=== PATIENT | female | born 1940 | race Caucasian/White ===

== ENCOUNTER → 2018-12-18 10:58 | Outpatient (CLI) | payer MEDICARE, OTHER, SELFPAY | PROVIDERS: Visit Provider Physician Assistant | DX: N39.0 Urinary tract infection, site not specified (principal) | CPT/HCPCS: 87077; 87086; 87186 ==

== ENCOUNTER 2018-12-29 19:59 | Emergency (ER) | payer MEDICARE, OTHER, SELFPAY ==
[2018-12-29 20:00] VITALS: BP 153/96; PULSE 74; PULSE 78; RESP 16; RESP 24; TEMP 36.5; O2SAT 96; O2SAT 98
--- NOTE | 2018-12-29 20:13 | DI.RAD.S_ITS ---
PROCEDURE: XR CHEST 1V INDICATIONS: Wheezing. TECHNIQUE: One view of the chest was acquired. COMPARISON: [facility], CHEST 2 VIEW, 02/20/2008, 10:33. [facility], CHEST 2 VIEW, 01/30/2017, 8:49. FINDINGS: Surgical changes and devices: None. Lungs and pleura: Linear opacities are redemonstrated in the lung bases likely representing scarring or atelectasis. No definite acute consolidation. No pleural effusions or pneumothorax. Mediastinum: Mediastinal contours appear unchanged. Heart size is normal. Bones and chest wall: No suspicious bony lesions. Overlying soft tissues appear unremarkable. IMPRESSION: 1. Probable atelectasis or scarring in the lung bases. No definite acute cardiopulmonary disease. Dictated by: Harley Banegas M.D. on 12/29/2018 at 21:11 Approved by: Harley Banegas M.D. on 12/29/2018 at 21:13
--- NOTE | 2018-12-29 20:19 | ED.SOB ---
HPI - SOB/Dyspnea <HARDIK Cowan - Last Filed: 12/29/18 22:20> General Chief Complaint: Shortness of Breath/Dyspnea Stated Complaint: hx of asthma/episode last x1 week Time Seen by Provider: 12/29/18 20:07 History of Present Illness 78-year-old female with a history of asthma, presents emergency department today complaining of wheezing and worsening shortness of breath occurring 2 hours ago after she fell asleep. She states that she has had a cough for a while, but tonight it got worse. Denies fevers, chest pain, rhinorrhea, ear pain, sore throat, difficulty swallowing, nausea, orthopnea, vomiting, diarrhea, hives, throat swelling, rash or dysuria. She states that she has an inhaler at home but is running out of it. She also states her and her are from [place] for the next month and a half. Patient is here with her who gives part of the history. During exam patient is able to talk but wheezing is heard. Patient was recently put on antibiotics for her urinary tract infection, she has 1 pill left. MD Complaint: shortness of breath Severity: moderate Relieving factors: bronchodilators Related Data Home Medications Medication Instructions Recorded Confirmed MULTIVITAMIN #0 01/23/17 12/18/18 albuterol sulfate [Proventil HFA] 1 puff INH #0 01/23/17 12/18/18 budesonide-formoterol [Symbicort] 1 inh INH BID #0 01/23/17 12/18/18 Previous Rx's Medication Instructions Recorded albuterol sulfate HFA 90 2 puff INHALATION Q4-6H PRN #8 gram 12/18/18 mcg/actuation aerosol inhaler nitrofurantoin 100 mg PO BID #14 cap 12/18/18 monohydrate/macrocrystals 100 mg capsule albuterol sulfate 2 puff INHALATION Q6H PRN #8 gram 12/29/18 albuterol sulfate 2 puff INHALATION Q6H PRN #8 gram 12/29/18 prednisone 50 mg PO DAILY #5 tab 12/29/18 prednisone 50 mg PO DAILY #5 tab 12/29/18 Allergies Allergy/AdvReac Type Severity Reaction Status Date / Time No Known Drug Allergies Allergy Unknown Verified 12/29/18 20:10 Review of Systems <HARDIK Cowan - Last Filed: 12/29/18 22:20> Review of Systems REVIEW OF SYSTEMS: GENERAL: Denies fever or chills. HENT: No head trauma, hearing loss or sore throat. EYES: No loss of vision, double vision, eye pain, or irritation. CARDIOVASCULAR: No chest pain or syncope. RESPIRATORY: Patient complains of cough and shortness of breath, see HPI. GASTROINTESTINAL: No nausea, vomiting, diarrhea, or constipation. GENITOURINARY: No flank pain or dysuria. MUSCULOSKELETAL: No pain, weakness, or deformities. INTEGUMENTARY: No rash, lesions, or pruritus. NEURO: No numbness, tingling, memory loss, or confusion. PSYCH: No behavior or mood changes. PFSH <HARDIK Cowan - Last Filed: 12/29/18 22:20> Medical History Asthma (Acute) Former smoker (Acute) Former smoker, stopped smoking in distant past (Acute) Social History Smoking Status: Former smoker Social History Smoking Status: Former smoker Exam <HARDIK Cowan - Last Filed: 12/29/18 22:20> Initial Vital Signs Initial Vital Signs: Vital Signs Temperature 97.7 F 12/29/18 20:00 Pulse Rate 78 12/29/18 20:00 Respiratory Rate 24 12/29/18 20:00 Blood Pressure 153/96 H 12/29/18 20:00 Pulse Oximetry 96 12/29/18 20:00 PHYSICAL EXAMINATION: GENERAL: Well groomed, alert, and cooperative. Answers questions promptly and appropriately, however difficult to talk in full sentences initially due to wheezing. Vital signs noted. HENT: Normocephalic, atraumatic. Ear canals patent. Oral mucosa is pink and moist without erythema, uvula midline, tonsils were absent. Patient able to swallow without difficulty. EYES: Conjunctiva pink, sclera white, no periorbital swelling. CARDIOVASCULAR: S1 and S2 sounds normal. Regular rate. RESPIRATORY: Normal respiratory rate, trachea midline, airway patent. Patient exhibits wheezes on bases of lungs, during initial exam she exhibited expiratory stridor as she was slumped down in bed. No in spurts story stridor was exhibited P Wheezes and stridor resolved after administration of 1 respiratory treatment. No nasal flaring, or accessory muscle use. Patient was able to converse a and maintained oral secretions. GASTROINTESTINAL: Bowel sounds normoactive. Abdomen is soft and non-tender. No organomegaly. MUSCULOSKELETAL: Normal gait and coordination. Equal tone and mass bilaterally. EXTREMITIES: CMS intact. Moves all extremities. SKIN: Warm, dry, soft, appropriate color for ethnicity. No lesions, rashes, or wounds. NEURO: Alert and Oriented X 3. Good coordination. No ataxia, or sensory deficits, or cognitive issues. PSYCH: Appropriate affect and mood. <Angie Garcia DO - Last Filed: 12/30/18 00:47> Initial Vital Signs Initial Vital Signs: Vital Signs Temperature 97.7 F 12/29/18 20:00 Pulse Rate 78 12/29/18 20:00 Respiratory Rate 24 12/29/18 20:00 Blood Pressure 153/96 H 12/29/18 20:00 Pulse Oximetry 96 12/29/18 20:00 GENERAL: Well-appearing, well-nourished and in no acute distress. HEENT: Head atraumatic,EOMI, pupils reactive, CARDIOVASCULAR: Regular rate and rhythm without murmurs, rubs or gallops. RESPIRATORY: Seeking in full sentences decreased breath sounds bilaterally with some slight expiratory wheezing no rales or rhonchi no tachypnea and no stridor ABDOMEN: Soft, nontender. Normoactive bowel sounds all 4 quadrants. No guarding or rebound. EXTREMITIES: Normal range of motion, no clubbing or edema. Neurovascularly intact NEUROLOGICAL: Alert and oriented x4.Normal gait and speech. Cranial nerves II through XII grossly intact. SKIN: Warm, dry, no laceration, no petechiae, no rashes or lesions. Course <NatachaHARDIK Menchaca - Last Filed: 12/29/18 22:20> Orders Ordered: ED Orders 12/29/18 20:10 Consult to Respiratory Therapy Evaluate & Treat B Type Natriuretic Peptide Stat Complete Blood Count AUTO DIFF Stat Comprehensive Metabolic Panel Stat Troponin & CK Cardiac Panel Stat 12/29/18 20:13 XR chest 1V Stat 12/29/18 20:25 EKG-12 Lead Stat Discontinued Medications Methylprednisolone (Solu-Medrol 125 Mg Vial) 125 mg IV NOW ONE Stop: 12/29/18 20:13 Last Admin: 12/29/18 20:22 Dose: 125 mg Reevaluation(s) Reevaluation #1: Patient stated she was feeling much better after administration of breathing treatments and prednisone. She states she would like to go home with like follow-up information about a primary care provider Consultations Consultation #1: After brought night and also viewed the patient. Vital Signs - 8 hr 12/29/18 20:00 12/29/18 20:30 12/29/18 21:30 Temperature 97.7 F Pulse Rate 74 74 79 Respiratory Rate 16 17 16 Blood Pressure 153/96 H Blood Pressure [Right Arm] 112/44 L 114/79 Pulse Oximetry 98 98 96 <Angie Garcia DO - Last Filed: 12/30/18 00:47> Orders Ordered: ED Orders 12/29/18 20:10 Consult to Respiratory Therapy Evaluate & Treat B Type Natriuretic Peptide Stat Complete Blood Count AUTO DIFF Stat Comprehensive Metabolic Panel Stat Troponin & CK Cardiac Panel Stat 12/29/18 20:13 XR chest 1V Stat 12/29/18 20:25 EKG-12 Lead Stat Discontinued Medications Methylprednisolone (Solu-Medrol 125 Mg Vial) 125 mg IV NOW ONE Stop: 12/29/18 20:13 Last Admin: 12/29/18 20:22 Dose: 125 mg Vital Signs - 8 hr 12/29/18 20:00 12/29/18 20:30 12/29/18 21:30 Temperature 97.7 F Pulse Rate 74 74 79 Respiratory Rate 16 17 16 Blood Pressure 153/96 H Blood Pressure [Right Arm] 112/44 L 114/79 Pulse Oximetry 98 98 96 MDM - SOB/Dyspnea <HARDIK Cowan - Last Filed: 12/29/18 22:20> Lab Data Attestation: I reviewed the patient's lab results. Result diagrams: 12/29/18 20:10 12/29/18 20:10 Lab Results 12/29/18 12/29/18 12/29/18 Range/Units 20:10 20:10 20:10 WBC 9.8 (4.5-11.0) X10^3/uL RBC 5.27 H (4.0-5.2) X10^6/uL Hgb 15.9 (12.0-16.0) g/dL Hct 47.2 H (36-46) % MCV 89.5 (80-100) fL MCH 30.1 (26-34) PG MCHC 33.6 (30-36) % RDW 13.5 (11.6-14.8) % Plt Count 340 (150-400) X10^3/uL Neut % (Auto) 46.4 L (50-75) % Lymph % (Auto) 35.2 (25-40) % [place] % (Auto) 9.7 (3-14) % Eos % (Auto) 7.9 H (2-4) % Baso % (Auto) 0.8 (0-2) % Neut # (Auto) 4600 (4266-7727) /uL Lymph # (Auto) 3500 (8327-6305) /uL [place] # (Auto) 1000 H (0-900) /uL Eos # (Auto) 800 H (0-450) /uL Baso # (Auto) 100 (0-100) /uL Sodium 139 (137-145) mmol/L Potassium 4.4 (3.4-5.1) mmol/L Chloride 102 (98-107) mmol/L Carbon Dioxide 26 (22-32) mmol/L BUN 14 (7-17) mg/dL Creatinine 0.80 (0.52-1.04) mg/dL Estimated GFR > 60.0 (>60) mL/min BUN/Creatinine Ratio 17.5 (6-22) Glucose 89 (80-110) mg/dL Calcium 9.9 (8.4-10.2) mg/dL Total Bilirubin 0.6 (0.2-1.3) mg/dL AST 35 (14-36) IU/L ALT 26 (9-52) IU/L Alkaline Phosphatase 106 (38-126) U/L Total Creatine Kinase 244 H (30-135) U/L CK-MB (CK-2) 3.22 H (<2.37) ng/mL CK-MB (CK-2) Rel Index 1.3 L (1.5-5.0) % Troponin I < 0.012 (0.01-0.034) ng/mL B-Natriuretic Peptide (<100) Total Protein 8.1 (6.3-8.2) g/dL Albumin 4.5 (3.5-5.0) g/dL Globulin 3.6 (1.7-4.1) g/dL Albumin/Globulin Ratio 1.3 (1.0-2.8) // Range/Units 20:10 WBC (4.5-11.0) X10^3/uL RBC (4.0-5.2) X10^6/uL Hgb (12.0-16.0) g/dL Hct (36-46) % MCV (80-100) fL MCH (26-34) PG MCHC (30-36) % RDW (11.6-14.8) % Plt Count (150-400) X10^3/uL Neut % (Auto) (50-75) % Lymph % (Auto) (25-40) % [place] % (Auto) (3-14) % Eos % (Auto) (2-4) % Baso % (Auto) (0-2) % Neut # (Auto) (9471-8995) /uL Lymph # (Auto) (4622-2072) /uL [place]isher # (Auto) (0-900) /uL Eos # (Auto) (0-450) /uL Baso # (Auto) (0-100) /uL Sodium (137-145) mmol/L Potassium (3.4-5.1) mmol/L Chloride (98-107) mmol/L Carbon Dioxide (22-32) mmol/L BUN (7-17) mg/dL Creatinine (0.52-1.04) mg/dL Estimated GFR (>60) mL/min BUN/Creatinine Ratio (6-22) Glucose (80-110) mg/dL Calcium (8.4-10.2) mg/dL Total Bilirubin (0.2-1.3) mg/dL AST (14-36) IU/L ALT (9-52) IU/L Alkaline Phosphatase (38-126) U/L Total Creatine Kinase (30-135) U/L CK-MB (CK-2) (<2.37) ng/mL CK-MB (CK-2) Rel Index (1.5-5.0) % Troponin I (0.01-0.034) ng/mL B-Natriuretic Peptide < 100 (<100) Total Protein (6.3-8.2) g/dL Albumin (3.5-5.0) g/dL Globulin (1.7-4.1) g/dL Albumin/Globulin Ratio (1.0-2.8) Imaging Data Chest XR: Radiologist's impression: [address] [address] XRay Report Signed Patient: Deborah Wyatt MMR#: [id number] : 2Acct:[id number] Age/Sex: 78 / FDate of Service: 12/29/18 Loc: ED Accession Number: [id number] Procedure: XR chest 1V Ordering Provider: Natacha Negron PROCEDURE: XR CHEST 1V INDICATIONS: Wheezing. TECHNIQUE: One view of the chest was acquired. COMPARISON: [facility], , CHEST 2 VIEW, 02/20/2008, 10:33. [facility], , CHEST 2 VIEW, 01/30/2017, 8:49. FINDINGS: Surgical changes and devices: None. Lungs and pleura: Linear opacities are redemonstrated in the lung bases likely representing scarring or atelectasis. No definite acute consolidation. No pleural effusions or pneumothorax. Mediastinum: Mediastinal contours appear unchanged. Heart size is normal. Bones and chest wall: No suspicious bony lesions. Overlying soft tissues appear unremarkable. IMPRESSION: 1. Probable atelectasis or scarring in the lung bases. No definite acute cardiopulmonary disease. Dictated by: Harley Banegas M.D. on 12/29/2018 at 21:11 Approved by: Harley Banegas M.D. on 12/29/2018 at 21:13 ECG Data Interpretation: EKG was feet interpreted by Dr. Garcia. MDM Narrative Medical decision making narrative: I suspect patient's symptoms are caused by an asthma exacerbation (resolution of symptoms with albuterol and prednisone, hyperinflation noted on chest x-ray, no infectious process indicated via vitals or exam or labs), unsure of etiology of exacerbation, alert patient's visit she has had a allergies. Less likely infectious process like pneumonia (negative chest x-ray normal labs), less likely heart failure (lack of pedal edema and negative BNP), less likely anaphylaxis (no rash, airway swelling, itching, or other symptoms), less likely cardiac etiology (negative cardiac enzymes, no cardiac findings on chest x-ray, EKG within normal limits). <Angie Garcia, DO - Last Filed: 12/30/18 00:47> Lab Data Attestation: I reviewed the patient's lab results. Lab Results 12/29/18 12/29/18 12/29/18 Range/Units 20:10 20:10 20:10 WBC 9.8 (4.5-11.0) X10^3/uL RBC 5.27 H (4.0-5.2) X10^6/uL Hgb 15.9 (12.0-16.0) g/dL Hct 47.2 H (36-46) % MCV 89.5 (80-100) fL MCH 30.1 (26-34) PG MCHC 33.6 (30-36) % RDW 13.5 (11.6-14.8) % Plt Count 340 (150-400) X10^3/uL Neut % (Auto) 46.4 L (50-75) % Lymph % (Auto) 35.2 (25-40) % [place]isher % (Auto) 9.7 (3-14) % Eos % (Auto) 7.9 H (2-4) % Baso % (Auto) 0.8 (0-2) % Neut # (Auto) 4600 (3694-4135) /uL Lymph # (Auto) 3500 (6909-2920) /uL [place] # (Auto) 1000 H (0-900) /uL Eos # (Auto) 800 H (0-450) /uL Baso # (Auto) 100 (0-100) /uL Sodium 139 (137-145) mmol/L Potassium 4.4 (3.4-5.1) mmol/L Chloride 102 (98-107) mmol/L Carbon Dioxide 26 (22-32) mmol/L BUN 14 (7-17) mg/dL Creatinine 0.80 (0.52-1.04) mg/dL Estimated GFR > 60.0 (>60) mL/min BUN/Creatinine Ratio 17.5 (6-22) Glucose 89 (80-110) mg/dL Calcium 9.9 (8.4-10.2) mg/dL Total Bilirubin 0.6 (0.2-1.3) mg/dL AST 35 (14-36) IU/L ALT 26 (9-52) IU/L Alkaline Phosphatase 106 (38-126) U/L Total Creatine Kinase 244 H (30-135) U/L CK-MB (CK-2) 3.22 H (<2.37) ng/mL CK-MB (CK-2) Rel Index 1.3 L (1.5-5.0) % Troponin I < 0.012 (0.01-0.034) ng/mL B-Natriuretic Peptide (<100) Total Protein 8.1 (6.3-8.2) g/dL Albumin 4.5 (3.5-5.0) g/dL Globulin 3.6 (1.7-4.1) g/dL Albumin/Globulin Ratio 1.3 (1.0-2.8) 12/29/18 Range/Units 20:10 WBC (4.5-11.0) X10^3/uL RBC (4.0-5.2) X10^6/uL Hgb (12.0-16.0) g/dL Hct (36-46) % MCV (80-100) fL MCH (26-34) PG MCHC (30-36) % RDW (11.6-14.8) % Plt Count (150-400) X10^3/uL Neut % (Auto) (50-75) % Lymph % (Auto) (25-40) % [place] % (Auto) (3-14) % Eos % (Auto) (2-4) % Baso % (Auto) (0-2) % Neut # (Auto) (1714-0324) /uL Lymph # (Auto) (3001-8300) /uL [place] # (Auto) (0-900) /uL Eos # (Auto) (0-450) /uL Baso # (Auto) (0-100) /uL Sodium (137-145) mmol/L Potassium (3.4-5.1) mmol/L Chloride (98-107) mmol/L Carbon Dioxide (22-32) mmol/L BUN (7-17) mg/dL Creatinine (0.52-1.04) mg/dL Estimated GFR (>60) mL/min BUN/Creatinine Ratio (6-22) Glucose (80-110) mg/dL Calcium (8.4-10.2) mg/dL Total Bilirubin (0.2-1.3) mg/dL AST (14-36) IU/L ALT (9-52) IU/L Alkaline Phosphatase (38-126) U/L Total Creatine Kinase (30-135) U/L CK-MB (CK-2) (<2.37) ng/mL CK-MB (CK-2) Rel Index (1.5-5.0) % Troponin I (0.01-0.034) ng/mL B-Natriuretic Peptide < 100 (<100) Total Protein (6.3-8.2) g/dL Albumin (3.5-5.0) g/dL Globulin (1.7-4.1) g/dL Albumin/Globulin Ratio (1.0-2.8) ECG Data Attestation: I personally reviewed and interpreted this ECG as follows: Prior ECG tracings: not available for review Interpretation: Normal sinus rhythm rate 81 p.r. interval [address] changes no T-wave inversions no priors to compare MDM Narrative Medical decision making narrative: The patient improved significantly after albuterol she is feeling much better. Discharge Plan Departure Patient Disposition: Home Clinical Impression: Asthma with exacerbation Qualifiers: Asthma severity: moderate Asthma persistence: unspecified Qualified Code(s): J45.901 - Unspecified asthma with (acute) exacerbation Discharge Date/Time: 12/29/18 22:02 Interventions: ED Discharge Assessment Last Done: 12/29/18 22:01 Instructions: DI for Asthma -- Adult Activity Restrictions/Additional Instructions: Thank you for entrusting me with your care today. As discussed, your labs were normal and your chest x-ray shows hyperinflation, I believe this is from an asthma exacerbation. I prescribed you steroids. Please follow up with her primary care provider in the next week. Return to the emergency department if he develops increasing shortness of breath, fevers, chest pain, vomiting, or syncope. I have sent your prescription to [facility]. Prescriptions: New prednisone 50 mg tablet 50 mg PO DAILY Qty: 5 RF: 0 albuterol sulfate 90 mcg/actuation HFA aerosol inhaler 2 puff INHALATION Q6H PRN (Reason: shortness of breath or wheezing) Qty: 8 RF: 0 albuterol sulfate 90 mcg/actuation HFA aerosol inhaler 2 puff INHALATION Q6H PRN (Reason: bronchospasm) Qty: 8 RF: 0 prednisone 50 mg tablet 50 mg PO DAILY Qty: 5 RF: 0 No Action albuterol sulfate [ProAir HFA] 90 mcg/actuation HFA aerosol inhaler 2 puff INHALATION Q4-6H PRN (Reason: asthma) Qty: 8 RF: 0 nitrofurantoin monohyd/m-cryst [Macrobid] 100 mg capsule 100 mg PO BID Qty: 14 RF: 0 MULTIVITAMIN Qty: 0 RF: 0 albuterol sulfate [Proventil HFA] 90 MCG/PUFF HFA aerosol inhaler 1 puff INH Qty: 0 RF: 0 budesonide-formoterol [Symbicort] 80 MCG/4.5 MCG HFA aerosol inhaler 1 inh INH BID Qty: 0 RF: 0 <Angie Garcia, - Last Filed: 12/30/18 00:47> Cosign ED Attending Coskielature Attestation: I was immediately available in the department for consultation. Documentation has been reviewed. I agree with assessment and plan.
[2018-12-29] MEDS: methylPREDNISolone 125 MG/2 ML VIAL IV (20:22)
[2018-12-29 20:27] LABS: Add Manual Diff / Slide Review NO; Basophils Absolute Auto 100 /uL (0-100); Basophils Percent Auto 0.8 % (0-2); Eosinophils Absolute Auto 800 /uL (0-450); Eosinophils Percent Auto 7.9 % (2-4); Hematocrit 47.2 % (36-46); Hemoglobin 15.9 g/dL (12.0-16.0); Lymphocytes Absolute Auto 3500 /uL (1100-4500); Lymphocytes Percent Auto 35.2 % (25-40); Mean Corpuscular HGB Conc 33.6 % (30-36); Mean Corpuscular Hemoglobin 30.1 PG (26-34); Mean Corpuscular Volume 89.5 fL (80-100); Monocytes Absolute Auto 1000 /uL (0-900); Monocytes Percent Auto 9.7 % (3-14); Neutrophils Absolute Auto 4600 /uL (1500-7000); Neutrophils Percent Auto 46.4 % (50-75); Platelet Count 340 X10^3/uL (150-400); Red Blood Cell Count 5.27 X10^6/uL (4.0-5.2); Red Cell Distribution Width 13.5 % (11.6-14.8); White Blood Cell Count 9.8 X10^3/uL (4.5-11.0)
[2018-12-29 20:30] VITALS: BP 112/44; PULSE 74; RESP 17; O2SAT 98
[2018-12-29 20:41] LABS: Alanine Aminotransferase 26 IU/L (9-52); Albumin 4.5 g/dL (3.5-5.0); Albumin Globulin Ratio 1.3 (1.0-2.8); Alkaline Phosphatase 106 U/L (38-126); Aspartate Aminotransferase 35 IU/L (14-36); BUN Creatinine Ratio 17.5 (6-22); Bilirubin Total 0.6 mg/dL (0.2-1.3); Blood Urea Nitrogen 14 mg/dL (7-17); Calcium 9.9 mg/dL (8.4-10.2); Carbon Dioxide 26 mmol/L (22-32); Chloride 102 mmol/L (98-107); Estimated Glomerular Filt Rate > 60.0 mL/min (>60); Globulin 3.6 g/dL (1.7-4.1); Glucose 89 mg/dL (80-110); HEMOLYSIS 37 (0-50); Potassium 4.4 mmol/L (3.4-5.1); Sodium 139 mmol/L (137-145); Total Protein 8.1 g/dL (6.3-8.2)
[2018-12-29 20:43] LABS: Creatine Kinase 244 U/L (30-135)
[2018-12-29 20:56] LABS: Troponin I < 0.012 ng/mL (0.01-0.034)
[2018-12-29 20:59] LABS: CKMB % Relative Index 1.3 % (1.5-5.0); Creatine Kinase MB 3.22 ng/mL (<2.37)
[2018-12-29 21:00] LABS: B Type Natriuretic Peptide < 100 (<100)
[2018-12-29 21:30] VITALS: BP 114/79; PULSE 79; RESP 16; O2SAT 96
--- NOTE | 2018-12-29 21:38 | ED_ITS ---
HPI - SOB/Dyspnea <HARDIK Cowan - Last Filed: 12/29/18 22:20> General Chief Complaint: Shortness of Breath/Dyspnea Stated Complaint: hx of asthma/episode last x1 week Time Seen by Provider: 12/29/18 20:07 History of Present Illness 78-year-old female with a history of asthma, presents emergency department today complaining of wheezing and worsening shortness of breath occurring 2 hours ago after she fell asleep. She states that she has had a cough for a while, but tonight it got worse. Denies fevers, chest pain, rhinorrhea, ear pain, sore throat, difficulty swallowing, nausea, orthopnea, vomiting, diarrhea, hives, throat swelling, rash or dysuria. She states that she has an inhaler at home but is running out of it. She also states her and her are from [place] for the next month and a half. Patient is here with her who gives part of the history. During exam patient is able to talk but wheezing is heard. Patient was recently put on antibiotics for her urinary tract infection, she has 1 pill left. MD Complaint: shortness of breath Severity: moderate Relieving factors: bronchodilators Related Data Home Medications Medication Instructions Recorded Confirmed MULTIVITAMIN #0 01/23/17 12/18/18 albuterol sulfate [Proventil HFA] 1 puff INH #0 01/23/17 12/18/18 budesonide-formoterol [Symbicort] 1 inh INH BID #0 01/23/17 12/18/18 Previous Rx's Medication Instructions Recorded albuterol sulfate HFA 90 2 puff INHALATION Q4-6H PRN #8 gram 12/18/18 mcg/actuation aerosol inhaler nitrofurantoin 100 mg PO BID #14 cap 12/18/18 monohydrate/macrocrystals 100 mg capsule albuterol sulfate 2 puff INHALATION Q6H PRN #8 gram 12/29/18 albuterol sulfate 2 puff INHALATION Q6H PRN #8 gram 12/29/18 prednisone 50 mg PO DAILY #5 tab 12/29/18 prednisone 50 mg PO DAILY #5 tab 12/29/18 Allergies Allergy/AdvReac Type Severity Reaction Status Date / Time No Known Drug Allergies Allergy Unknown Verified 12/29/18 20:10 Review of Systems <HARDIK Cowan - Last Filed: 12/29/18 22:20> Review of Systems REVIEW OF SYSTEMS: GENERAL: Denies fever or chills. HENT: No head trauma, hearing loss or sore throat. EYES: No loss of vision, double vision, eye pain, or irritation. CARDIOVASCULAR: No chest pain or syncope. RESPIRATORY: Patient complains of cough and shortness of breath, see HPI. GASTROINTESTINAL: No nausea, vomiting, diarrhea, or constipation. GENITOURINARY: No flank pain or dysuria. MUSCULOSKELETAL: No pain, weakness, or deformities. INTEGUMENTARY: No rash, lesions, or pruritus. NEURO: No numbness, tingling, memory loss, or confusion. PSYCH: No behavior or mood changes. PFSH <HARDIK Cowan - Last Filed: 12/29/18 22:20> Medical History Asthma (Acute) Former smoker (Acute) Former smoker, stopped smoking in distant past (Acute) Social History Smoking Status: Former smoker Social History Smoking Status: Former smoker Exam <HARDIK Cowan - Last Filed: 12/29/18 22:20> Initial Vital Signs Initial Vital Signs: Vital Signs Temperature 97.7 F 12/29/18 20:00 Pulse Rate 78 12/29/18 20:00 Respiratory Rate 24 12/29/18 20:00 Blood Pressure 153/96 H 12/29/18 20:00 Pulse Oximetry 96 12/29/18 20:00 PHYSICAL EXAMINATION: GENERAL: Well groomed, alert, and cooperative. Answers questions promptly and appropriately, however difficult to talk in full sentences initially due to wheezing. Vital signs noted. HENT: Normocephalic, atraumatic. Ear canals patent. Oral mucosa is pink and moist without erythema, uvula midline, tonsils were absent. Patient able to swallow without difficulty. EYES: Conjunctiva pink, sclera white, no periorbital swelling. CARDIOVASCULAR: S1 and S2 sounds normal. Regular rate. RESPIRATORY: Normal respiratory rate, trachea midline, airway patent. Patient exhibits wheezes on bases of lungs, during initial exam she exhibited expiratory stridor as she was slumped down in bed. No in spurts story stridor was exhibited P Wheezes and stridor resolved after administration of 1 respiratory treatment. No nasal flaring, or accessory muscle use. Patient was able to converse a and maintained oral secretions. GASTROINTESTINAL: Bowel sounds normoactive. Abdomen is soft and non-tender. No organomegaly. MUSCULOSKELETAL: Normal gait and coordination. Equal tone and mass bilaterally. EXTREMITIES: CMS intact. Moves all extremities. SKIN: Warm, dry, soft, appropriate color for ethnicity. No lesions, rashes, or wounds. NEURO: Alert and Oriented X 3. Good coordination. No ataxia, or sensory deficit s, or cognitive issues. PSYCH: Appropriate affect and mood. <Angie Garcia DO - Last Filed: 12/30/18 00:47> Initial Vital Signs Initial Vital Signs: Vital Signs Temperature 97.7 F 12/29/18 20:00 Pulse Rate 78 12/29/18 20:00 Respiratory Rate 24 12/29/18 20:00 Blood Pressure 153/96 H 12/29/18 20:00 Pulse Oximetry 96 12/29/18 20:00 GENERAL: Well-appearing, well-nourished and in no acute distress. HEENT: Head atraumatic,EOMI, pupils reactive, CARDIOVASCULAR: Regular rate and rhythm without murmurs, rubs or gallops. RESPIRATORY: Seeking in full sentences decreased breath sounds bilaterally with some slight expiratory wheezing no rales or rhonchi no tachypnea and no stridor ABDOMEN: Soft, nontender. Normoactive bowel sounds all 4 quadrants. No guarding or rebound. EXTREMITIES: Normal range of motion, no clubbing or edema. Neurovascularly intact NEUROLOGICAL: Alert and oriented x4.Normal gait and speech. Cranial nerves II through XII grossly intact. SKIN: Warm, dry, no laceration, no petechiae, no rashes or lesions. Course <NatachaHARDIK Menchaca - Last Filed: 12/29/18 22:20> Orders Ordered: ED Orders 12/29/18 20:10 Consult to Respiratory Therapy Evaluate & Treat B Type Natriuretic Peptide Stat Complete Blood Count AUTO DIFF Stat Comprehensive Metabolic Panel Stat Troponin & CK Cardiac Panel Stat 12/29/18 20:13 XR chest 1V Stat 12/29/18 20:25 EKG-12 Lead Stat Discontinued Medications Methylprednisolone (Solu-Medrol 125 Mg Vial) 125 mg IV NOW ONE Stop: 12/29/18 20:13 Last Admin: 12/29/18 20:22 Dose: 125 mg Reevaluation(s) Reevaluation #1: Patient stated she was feeling much better after administration of breathing treatments and prednisone. She states she would like to go home with like follow-up information about a primary care provider Consultations Consultation #1: After brought night and also viewed the patient. Vital Signs - 8 hr 12/29/18 20:00 12/29/18 20:30 12/29/18 21:30 Temperature 97.7 F Pulse Rate 74 74 79 Respiratory Rate 16 17 16 Blood Pressure 153/96 H Blood Pressure [Right Arm] 112/44 L 114/79 Pulse Oximetry 98 98 96 <Angie Garcia DO - Last Filed: 12/30/18 00:47> Orders Ordered: ED Orders 12/29/18 20:10 Consult to Respiratory Therapy Evaluate & Treat B Type Natriuretic Peptide Stat Complete Blood Count AUTO DIFF Stat Comprehensive Metabolic Panel Stat Troponin & CK Cardiac Panel Stat 12/29/18 20:13 XR chest 1V Stat 12/29/18 20:25 EKG-12 Lead Stat Discontinued Medications Methylprednisolone (Solu-Medrol 125 Mg Vial) 125 mg IV NOW ONE Stop: 12/29/18 20:13 Last Admin: 12/29/18 20:22 Dose: 125 mg Vital Signs - 8 hr 12/29/18 20:00 12/29/18 20:30 12/29/18 21:30 Temperature 97.7 F Pulse Rate 74 74 79 Respiratory Rate 16 17 16 Blood Pressure 153/96 H Blood Pressure [Right Arm] 112/44 L 114/79 Pulse Oximetry 98 98 96 MDM - SOB/Dyspnea <HARDIK Cowan - Last Filed: 12/29/18 22:20> Lab Data Attestation: I reviewed the patient's lab results. Result diagrams: 12/29/18 20:10 12/29/18 20:10 Lab Results 12/29/18 12/29/18 12/29/18 Range/Units 20:10 20:10 20:10 WBC 9.8 (4.5-11.0) X10^3/uL RBC 5.27 H (4.0-5.2) X10^6/uL Hgb 15.9 (12.0-16.0) g/dL Hct 47.2 H (36-46) % MCV 89.5 (80-100) fL MCH 30.1 (26-34) PG MCHC 33.6 (30-36) % RDW 13.5 (11.6-14.8) % Plt Count 340 (150-400) X10^3/uL Neut % (Auto) 46.4 L (50-75) % Lymph % (Auto) 35.2 (25-40) % [place] % (Auto) 9.7 (3-14) % Eos % (Auto) 7.9 H (2-4) % Baso % (Auto) 0.8 (0-2) % Neut # (Auto) 4600 (2770-1611) /uL Lymph # (Auto) 3500 (8676-2660) /uL [place] # (Auto) 1000 H (0-900) /uL Eos # (Auto) 800 H (0-450) /uL Baso # (Auto) 100 (0-100) /uL Sodium 139 (137-145) mmol/L Potassium 4.4 (3.4-5.1) mmol/L Chloride 102 (98-107) mmol/L Carbon Dioxide 26 (22-32) mmol/L BUN 14 (7-17) mg/dL Creatinine 0.80 (0.52-1.04) mg/dL Estimated GFR > 60.0 (>60) mL/min BUN/Creatinine Ratio 17.5 (6-22) Glucose 89 (80-110) mg/dL Calcium 9.9 (8.4-10.2) mg/dL Total Bilirubin 0.6 (0.2-1.3) mg/dL AST 35 (14-36) IU/L ALT 26 (9-52) IU/L Alkaline Phosphatase 106 (38-126) U/L Total Creatine Kinase 244 H (30-135) U/L CK-MB (CK-2) 3.22 H (<2.37) ng/mL CK-MB (CK-2) Rel Index 1.3 L (1.5-5.0) % Troponin I < 0.012 (0.01-0.034) ng/mL B-Natriuretic Peptide (<100) Total Protein 8.1 (6.3-8.2) g/dL Albumin 4.5 (3.5-5.0) g/dL Globulin 3.6 (1.7-4.1) g/dL Albumin/Globulin Ratio 1.3 (1.0-2.8) 12/29/ Range/Units 20:10 WBC (4.5-11.0) X10^3/uL RBC (4.0-5.2) X10^6/uL Hgb (12.0-16.0) g/dL Hct (36-46) % MCV (80-100) fL MCH (26-34) PG MCHC (30-36) % RDW (11.6-14.8) % Plt Count (150-400) X10^3/uL Neut % (Auto) (50-75) % Lymph % (Auto) (25-40) % [place] % (Auto) (3-14) % Eos % (Auto) (2-4) % Baso % (Auto) (0-2) % Neut # (Auto) (2870-4936) /uL Lymph # (Auto) (4293-8441) /uL [place] # (Auto) (0-900) /uL Eos # (Auto) (0-450) /uL Baso # (Auto) (0-100) /uL Sodium (137-145) mmol/L Potassium (3.4-5.1) mmol/L Chloride (98-107) mmol/L Carbon Dioxide (22-32) mmol/L BUN (7-17) mg/dL Creatinine (0.52-1.04) mg/dL Estimated GFR (>60) mL/min BUN/Creatinine Ratio (6-22) Glucose (80-110) mg/dL Calcium (8.4-10.2) mg/dL Total Bilirubin (0.2-1.3) mg/dL AST (14-36) IU/L ALT (9-52) IU/L Alkaline Phosphatase (38-126) U/L Total Creatine Kinase (30-135) U/L CK-MB (CK-2) (<2.37) ng/mL CK-MB (CK-2) Rel Index (1.5-5.0) % Troponin I (0.01-0.034) ng/mL B-Natriuretic Peptide < 100 (<100) Total Protein (6.3-8.2) g/dL Albumin (3.5-5.0) g/dL Globulin (1.7-4.1) g/dL Albumin/Globulin Ratio (1.0-2.8) Imaging Data Chest XR: Radiologist's impression: [place] [id number] [place] [id number] XRay Report Signed Patient: Deborah Wyatt MMR#: [id number] : 2Acct:[id number] Age/Sex: 78 / FDate of Service: 12/29/18 Loc: ED Accession Number: [id number] Procedure: XR chest 1V Ordering Provider: Natacha Negron PROCEDURE: XR CHEST 1V INDICATIONS: Wheezing. TECHNIQUE: One view of the chest was acquired. COMPARISON: [facility], , CHEST 2 VIEW, 02/20/2008, 10:33. [facility], , CHEST 2 VIEW, 01/30/2017, 8:49. FINDINGS: Surgical changes and devices: None. Lungs and pleura: Linear opacities are redemonstrated in the lung bases likely representing scarring or atelectasis. No definite acute consolidation. No pleural effusions or pneumothorax. Mediastinum: Mediastinal contours appear unchanged. Heart size is normal. Bones and chest wall: No suspicious bony lesions. Overlying soft tissues appear unremarkable. IMPRESSION: 1. Probable atelectasis or scarring in the lung bases. No definite acute cardiopulmonary disease. Dictated by: Harley Banegas M.D. on 12/29/2018 at 21:11 Approved by: Harley Banegas M.D. on 12/29/2018 at 21:13 ECG Data Interpretation: EKG was feet interpreted by Dr. Garcia. MDM Narrative Medical decision making narrative: I suspect patient's symptoms are caused by an asthma exacerbation (resolution of symptoms with albuterol and prednisone, hyperinflation noted on chest x-ray, no infectious process indicated via vitals or exam or labs), unsure of etiology of exacerbation, alert patient's visit she has had a allergies. Less likely infectious process like pneumonia (negative chest x-ray normal labs), less likely heart failure (lack of pedal edema and negative BNP), less likely anaphylaxis (no rash, airway swelling, itching, or other symptoms), less likely cardiac etiology (negative cardiac enzymes, no cardiac findings on chest x-ray, EKG within normal limits). <Angie Garcia, DO - Last Filed: 12/30/18 00:47> Lab Data Attestation: I reviewed the patient's lab results. Lab Results 12/29/18 12/29/18 12/29/18 Range/Units 20:10 20:10 20:10 WBC 9.8 (4.5-11.0) X10^3/uL RBC 5.27 H (4.0-5.2) X10^6/uL Hgb 15.9 (12.0-16.0) g/dL Hct 47.2 H (36-46) % MCV 89.5 (80-100) fL MCH 30.1 (26-34) PG MCHC 33.6 (30-36) % RDW 13.5 (11.6-14.8) % Plt Count 340 (150-400) X10^3/uL Neut % (Auto) 46.4 L (50-75) % Lymph % (Auto) 35.2 (25-40) % [place] % (Auto) 9.7 (3-14) % Eos % (Auto) 7.9 H (2-4) % Baso % (Auto) 0.8 (0-2) % Neut # (Auto) 4600 (2865-5956) /uL Lymph # (Auto) 3500 (8564-0824) /uL [place] # (Auto) 1000 H (0-900) /uL Eos # (Auto) 800 H (0-450) /uL Baso # (Auto) 100 (0-100) /uL Sodium 139 (137-145) mmol/L Potassium 4.4 (3.4-5.1) mmol/L Chloride 102 (98-107) mmol/L Carbon Dioxide 26 (22-32) mmol/L BUN 14 (7-17) mg/dL Creatinine 0.80 (0.52-1.04) mg/dL Estimated GFR > 60.0 (>60) mL/min BUN/Creatinine Ratio 17.5 (6-22) Glucose 89 (80-110) mg/dL Calcium 9.9 (8.4-10.2) mg/dL Total Bilirubin 0.6 (0.2-1.3) mg/dL AST 35 (14-36) IU/L ALT 26 (9-52) IU/L Alkaline Phosphatase 106 (38-126) U/L Total Creatine Kinase 244 H (30-135) U/L CK-MB (CK-2) 3.22 H (<2.37) ng/mL CK-MB (CK-2) Rel Index 1.3 L (1.5-5.0) % Troponin I < 0.012 (0.01-0.034) ng/mL B-Natriuretic Peptide (<100) Total Protein 8.1 (6.3-8.2) g/dL Albumin 4.5 (3.5-5.0) g/dL Globulin 3.6 (1.7-4.1) g/dL Albumin/Globulin Ratio 1.3 (1.0-2.8) 12/29/18 Range/Units 20:10 WBC (4.5-11.0) X10^3/uL RBC (4.0-5.2) X10^6/uL Hgb (12.0-16.0) g/dL Hct (36-46) % MCV (80-100) fL MCH (26-34) PG MCHC (30-36) % RDW (11.6-14.8) % Plt Count (150-400) X10^3/uL Neut % (Auto) (50-75) % Lymph % (Auto) (25-40) % [place] % (Auto) (3-14) % Eos % (Auto) (2-4) % Baso % (Auto) (0-2) % Neut # (Auto) (9717-4591) /uL Lymph # (Auto) (5508-7163) /uL [place] # (Auto) (0-900) /uL Eos # (Auto) (0-450) /uL Baso # (Auto) (0-100) /uL Sodium (137-145) mmol/L Potassium (3.4-5.1) mmol/L Chloride (98-107) mmol/L Carbon Dioxide (22-32) mmol/L BUN (7-17) mg/dL Creatinine (0.52-1.04) mg/dL Estimated GFR (>60) mL/min BUN/Creatinine Ratio (6-22) Glucose (80-110) mg/dL Calcium (8.4-10.2) mg/dL Total Bilirubin (0.2-1.3) mg/dL AST (14-36) IU/L ALT (9-52) IU/L Alkaline Phosphatase (38-126) U/L Total Creatine Kinase (30-135) U/L CK-MB (CK-2) (<2.37) ng/mL CK-MB (CK-2) Rel Index (1.5-5.0) % Troponin I (0.01-0.034) ng/mL B-Natriuretic Peptide < 100 (<100) Total Protein (6.3-8.2) g/dL Albumin (3.5-5.0) g/dL Globulin (1.7-4.1) g/dL Albumin/Globulin Ratio (1.0-2.8) ECG Data Attestation: I personally reviewed and interpreted this ECG as follows: Prior ECG tracings: not available for review Interpretation: Normal sinus rhythm rate 81 p.r. interval [address] changes no T-wave inversions no priors to compare MDM Narrative Medical decision making narrative: The patient improved significantly after albuterol she is feeling much better. Discharge Plan Departure Patient Disposition: Home Clinical Impression: Asthma with exacerbation Qualifiers: Asthma severity: moderate Asthma persistence: unspecified Qualified Code(s): J45.901 - Unspecified asthma with (acute) exacerbation Discharge Date/Time: 12/29/18 22:02 Interventions: ED Discharge Assessment Last Done: 12/29/18 22:01 Instructions: DI for Asthma -- Adult Activity Restrictions/Additional Instructions: Thank you for entrusting me with your care today. As discussed, your labs were normal and your chest x-ray shows hyperinflation, I believe this is from an asthma exacerbation. I prescribed you steroids. Please follow up with her primary care provider in the next week. Return to the emergency department if he develops increasing shortness of breath, fevers, chest pain, vomiting, or syncope. I have sent your prescription to [facility]. Prescriptions: New prednisone 50 mg tablet 50 mg PO DAILY Qty: 5 RF: 0 albuterol sulfate 90 mcg/actuation HFA aerosol inhaler 2 puff INHALATION Q6H PRN (Reason: shortness of breath or wheezing) Qty: 8 RF: 0 albuterol sulfate 90 mcg/actuation HFA aerosol inhaler 2 puff INHALATION Q6H PRN (Reason: bronchospasm) Qty: 8 RF: 0 prednisone 50 mg tablet 50 mg PO DAILY Qty: 5 RF: 0 No Action albuterol sulfate [ProAir HFA] 90 mcg/actuation HFA aerosol inhaler 2 puff INHALATION Q4-6H PRN (Reason: asthma) Qty: 8 RF: 0 nitrofurantoin monohyd/m-cryst [Macrobid] 100 mg capsule 100 mg PO BID Qty: 14 RF: 0 MULTIVITAMIN Qty: 0 RF: 0 albuterol sulfate [Proventil HFA] 90 MCG/PUFF HFA aerosol inhaler 1 puff INH Qty: 0 RF: 0 budesonide-formoterol [Symbicort] 80 MCG/4.5 MCG HFA aerosol inhaler 1 inh INH BID Qty: 0 RF: 0 <Angie Garcia, - Last Filed: 12/30/18 00:47> Cosign ED Attending Shankarature Attestation: I was immediately available in the department for consultation. Documentation has been reviewed. I agree with assessment and plan.
== END 2018-12-29 22:02 | disposition home or self-care (01) ==
PROVIDERS: Emergency Medicine; Emergency Provider Nurse Practitioner
DX: J45.901 Unspecified asthma with (acute) exacerbation (principal); R06.02 Shortness of breath
CPT/HCPCS: 71045; 80053; 82550; 82553; 83880; 84484; 85025; 93005; 94640; 96374; 99282; 99285; J2930

== ENCOUNTER 2019-01-19 20:13 | Emergency (ER) | payer MEDICARE, OTHER, SELFPAY ==
--- NOTE | 2019-01-19 20:22 | DI.RAD.S_ITS ---
PROCEDURE: XR CHEST 2V INDICATIONS: SOB TECHNIQUE: 2 views of the chest were acquired. COMPARISON: [facility], , XR CHEST 1V, 12/29/2018, 20:24. [facility], , CHEST 2 VIEW, 01/30/2017, 8:49. FINDINGS: Surgical changes and devices: None. Lungs and pleura: Lungs are clear. No pleural effusions or pneumothorax. Mediastinum: Mediastinal contours are normal. Heart size is normal. Bones and chest wall: No suspicious bony abnormalities. Soft tissues appear unremarkable. IMPRESSION: No acute cardiopulmonary disease. Dictated by: Sameera Coon M.D. on 01/19/2019 at 21:25 Approved by: Sameera Coon M.D. on 01/19/2019 at 21:26
[2019-01-19 20:27] VITALS: BP 173/56; PULSE 75; RESP 16; O2SAT 93; BMI 33.5
--- NOTE | 2019-01-19 20:30 | ED.SOB ---
HPI - SOB/Dyspnea General Chief Complaint: Shortness of Breath/Dyspnea Stated Complaint: HURTS TO LAY DOWN Time Seen by Provider: 01/19/19 20:13 Source: patient and family Mode of arrival: ambulatory Limitations: no limitations History of Present Illness 78-year-old female with history of asthma presents with her and a chief complaint of wheezing and increased cough when laying flat for the past 6 months or more. She denies any significant change in her symptoms. She has had no cough with sputum production or fever or chills. She denies any chest pain. She is not dizzy nor weak or lightheaded. She denies abdominal pain. She denies any swelling of her legs. She denies any weight gain. Patient does use albuterol at home and has been using it without a spacer once daily. She has a prescription for oral prednisone but does not take it. MD Complaint: shortness of breath Onset (ago): month(s) Severity: mild Consistency/Duration: constant Relieving factors: nothing Exacerbating factors: lying flat Known history of: asthma Associated symptoms: denies other symptoms Treatment prior to arrival: bronchodilator Related Data Home oxygen amount: none Home Medications Medication Instructions Recorded Confirmed MULTIVITAMIN #0 01/23/17 12/18/18 albuterol sulfate [Proventil HFA] 1 puff INH #0 01/23/17 12/18/18 budesonide-formoterol [Symbicort] 1 inh INH BID #0 01/23/17 12/18/18 Previous Rx's Medication Instructions Recorded albuterol sulfate HFA 90 2 puff INHALATION Q4-6H PRN #8 gram 12/18/18 mcg/actuation aerosol inhaler nitrofurantoin 100 mg PO BID #14 cap 12/18/18 monohydrate/macrocrystals 100 mg capsule albuterol sulfate 2 puff INHALATION Q6H PRN #8 gram 12/29/18 albuterol sulfate 2 puff INHALATION Q6H PRN #8 gram 12/29/18 prednisone 50 mg PO DAILY #5 tab 12/29/18 prednisone 50 mg PO DAILY #5 tab 12/29/18 Allergies Allergy/AdvReac Type Severity Reaction Status Date / Time No Known Drug Allergies Allergy Unknown Verified 01/19/19 20:27 Review of Systems Constitutional Denies chills, Denies fever(s), Denies lethargy and Denies weakness Eyes Denies change in vision, Denies eye discharge, Denies irritation and Denies loss of vision ENT Ears, Nose, Mouth, and Throat: Denies change in voice, Denies neck pain and Denies sore throat Cardiovascular Denies chest pain, Denies irregular heart rhythm, Denies lightheadedness, Denies palpitations, Denies dyspnea, Denies dyspnea on exertion and Denies orthopnea Respiratory Denies cough, Denies dyspnea, Denies dyspnea on exertion and Reports wheezing Gastrointestinal Gastrointestinal: Denies abdominal pain, Denies change in bowel habits, Denies diarrhea, Denies nausea and Denies vomiting Genitourinary Denies hematuria, Denies flank pain, Denies urinary incontinence and Denies urinary urgency Musculoskeletal Denies neck pain Integumentary/Breasts Denies pruritus, Denies erythema, Denies rash and Denies wounds Neurologic Denies confusion, Denies loss of vision and Denies weakness Psychiatric Denies anxiety, Denies confusion, Denies depression, Denies homicidal ideation and Denies suicidal ideation Endocrine Denies palpitations Hematologic/Lymphatic Denies easy bruising Allergic/Immunologic Reports wheezing PFSH Medical History Asthma (Acute) Former smoker (Acute) Former smoker, stopped smoking in distant past (Acute) Social History Smoking Status: Former smoker Social History Smoking Status: Former smoker Exam Narrative Exam Narrative: GENERAL: 78-year-old female appears stated age, resting comfortably and in no obvious respiratory distress HEAD: Atraumatic. Normocephalic. No temporal or scalp tenderness. EYES: Pupils equal round and reactive. Extraocular motions intact. No scleral icterus. No injection or drainage. ENT: Nose without bleeding, purulent drainage or septal hematoma. Throat without erythema, tonsillar hypertrophy or exudate. Uvula midline. Airway patent. NECK: Trachea midline. No JVD or lymphadenopathy. Supple, nontender, no meningeal signs. CARDIOVASCULAR: Regular rate and rhythm without murmurs, gallops, or rubs. RESPIRATORY: Decreased breath sounds bilaterally with a prolonged expiratory phase and a mild expiratory wheeze, no the by rales GASTROINTESTINAL: Abdomen soft, non-tender, nondistended. No hepato-splenomegaly, or palpable masses. No guarding. EXTREMITIES: No clubbing, cyanosis, or edema. No joint tenderness, effusion, or edema noted. BACK: Nontender without deformity or crepitance. No flank tenderness. NEURO: AOx3. SKIN: No rash or erythema. Initial Vital Signs Initial Vital Signs: Vital Signs Pulse Rate 75 01/19/19 20:27 Respiratory Rate 16 01/19/19 20:27 Blood Pressure 173/56 H 01/19/19 20:27 Pulse Oximetry 93 01/19/19 20:27 Course Orders Ordered: ED Orders 01/19/19 21:35 Urine Culture Stat Urine Microscopic Stat Discontinued Medications Albuterol (Ventolin Hfa Prepack) 1 box MISC SEEINSTR ONE Stop: 01/19/19 22:13 Last Admin: 01/19/19 22:20 Dose: 1 box Albuterol/Ipratropium (Duoneb) 3 ml INH NOW ONE Stop: 01/19/19 20:35 Last Admin: 01/19/19 20:43 Dose: 3 ml Methylprednisolone (Solu-Medrol 125 Mg Vial) 125 mg IV NOW ONE Stop: 01/19/19 20:23 Last Admin: 01/19/19 20:55 Dose: 125 mg Reevaluation(s) Reevaluation #1: Patient feels tremendous relief after DuoNeb. Respiratory therapy is provided bedside instruction for the use of a spacer Vital Signs - 8 hr 01/19/19 22:08 Pulse Rate 79 Respiratory Rate 21 Blood Pressure [Right Arm] 124/47 L Pulse Oximetry 97 MDM - SOB/Dyspnea Lab Data Result diagrams: 01/19/19 21:00 01/19/19 21:00 Lab Results 01/19/19 01/19/19 01/19/19 Range/Units 21:00 21:00 21:00 WBC 9.9 (4.5-11.0) X10^3/uL RBC 5.38 H (4.0-5.2) X10^6/uL Hgb 16.2 H (12.0-16.0) g/dL Hct 48.5 H (36-46) % MCV 90.2 (80-100) fL MCH 30.1 (26-34) PG MCHC 33.4 (30-36) % RDW 13.4 (11.6-14.8) % Plt Count 314 (150-400) X10^3/uL Neut % (Auto) 43.6 L (50-75) % Lymph % (Auto) 41.5 H (25-40) % [place] % (Auto) 7.3 (3-14) % Eos % (Auto) 6.5 H (2-4) % Baso % (Auto) 1.1 (0-2) % Neut # (Auto) 4300 (5772-9802) /uL Lymph # (Auto) 4100 (3369-5811) /uL [place] # (Auto) 700 (0-900) /uL Eos # (Auto) 600 H (0-450) /uL Baso # (Auto) 100 (0-100) /uL D-Dimer < 200 (<230) ng/mL Sodium 139 (137-145) mmol/L Potassium 3.9 (3.4-5.1) mmol/L Chloride 101 (98-107) mmol/L Carbon Dioxide 31 (22-32) mmol/L BUN 11 (7-17) mg/dL Creatinine 0.80 (0.52-1.04) mg/dL Estimated GFR > 60.0 (>60) mL/min BUN/Creatinine Ratio 13.8 (6-22) Glucose 99 (80-110) mg/dL Lactate (0.7-2.1) mmol/L Calcium 9.8 (8.4-10.2) mg/dL Magnesium 1.8 (1.6-2.3) mg/dL Total Creatine Kinase 72 (30-135) U/L CK-MB (CK-2) TNP CK-MB (CK-2) Rel Index TNP Troponin I < 0.012 (0.01-0.034) ng/mL B-Natriuretic Peptide < 100 (<100) Procalcitonin (<0.5) ng/mL Urine RBC (0-5/HPF) Urine WBC (0-5/HPF) Ur Squamous Epith Cells (0-5/HPF) Urine Bacteria (None) Ur Culture Indicated? 01/19/19 01/19/19 01/19/19 Range/Units 21:00 21:00 21:35 WBC (4.5-11.0) X10^3/uL RBC (4.0-5.2) X10^6/uL Hgb (12.0-16.0) g/dL Hct (36-46) % MCV (80-100) fL MCH (26-34) PG MCHC (30-36) % RDW (11.6-14.8) % Plt Count (150-400) X10^3/uL Neut % (Auto) (50-75) % Lymph % (Auto) (25-40) % [place] % (Auto) (3-14) % Eos % (Auto) (2-4) % Baso % (Auto) (0-2) % Neut # (Auto) (1678-8176) /uL Lymph # (Auto) (9636-9534) /uL [place] # (Auto) (0-900) /uL Eos # (Auto) (0-450) /uL Baso # (Auto) (0-100) /uL D-Dimer (<230) ng/mL Sodium (137-145) mmol/L Potassium (3.4-5.1) mmol/L Chloride (98-107) mmol/L Carbon Dioxide (22-32) mmol/L BUN (7-17) mg/dL Creatinine (0.52-1.04) mg/dL Estimated GFR (>60) mL/min BUN/Creatinine Ratio (6-22) Glucose (80-110) mg/dL Lactate 1.4 (0.7-2.1) mmol/L Calcium (8.4-10.2) mg/dL Magnesium (1.6-2.3) mg/dL Total Creatine Kinase (30-135) U/L CK-MB (CK-2) CK-MB (CK-2) Rel Index Troponin I (0.01-0.034) ng/mL B-Natriuretic Peptide (<100) Procalcitonin < 0.05 (<0.5) ng/mL Urine RBC None seen (0-5/HPF) Urine WBC 5-10/hpf H (0-5/HPF) Ur Squamous Epith Cells 0-1 /hpf (0-5/HPF) Urine Bacteria Few (2-10) H (None) Ur Culture Indicated? Specimen cultured Urine Dip Bedside Urine Glucose Negative Bedside Urine Bilirubin - Negative Bedside Urine Ketone - Negative Urine Specific [place] 1.005 Bedside Urine Occult Blood - Negative Bedside Urine pH 6 Bedside Urine Protein - Negative Bedside Urine Urobilinogen - Negative Bedside Urine Nitrite - Negative Bedside Urine Leukocytes ++ 125 Esterase Imaging Data Chest x-ray: Radiologist's impression: [address] [address] XRay Report Signed Patient: Deborah Wyatt MMR#: [id number] : 2Acct:[id number] Age/Sex: 78 / FDate of Service: 01/19/19 Loc: ED Accession Number: [id number] Procedure: XR chest 2V Ordering Provider: Trent Melendez D.O. PROCEDURE: XR CHEST 2V INDICATIONS: SOB TECHNIQUE: 2 views of the chest were acquired. COMPARISON: [facility], CR, XR CHEST 1V, 12/29/2018, 20:24. [facility], CR, CHEST 2 VIEW, 01/30/2017, 8:49. FINDINGS: Surgical changes and devices: None. Lungs and pleura: Lungs are clear. No pleural effusions or pneumothorax. Mediastinum: Mediastinal contours are normal. Heart size is normal. Bones and chest wall: No suspicious bony abnormalities. Soft tissues appear unremarkable. IMPRESSION: No acute cardiopulmonary disease. Dictated by: Sameera Coon M.D. on 01/19/2019 at 21:25 Approved by: Sameera Coon M.D. on 01/19/2019 at 21:26 MDM Narrative Medical decision making narrative: Patient's history initially sounded like CHF, a this was obviously considered but thought less likely given her lack of crackles on exam, weight gain, lower extremity edema, elevated BNP or characteristic findings on x-ray. Pneumonia considered but thought less likely given lack of fever, productive cough or findings on x-ray. Bronchospasm considered most likely given her improvement to bronchodilators Discharge Plan Departure Patient Disposition: Home Clinical Impression: Asthma with exacerbation Qualifiers: Asthma severity: mild Asthma persistence: intermittent Qualified Code(s): J45.21 - Mild intermittent asthma with (acute) exacerbation Discharge Date/Time: 01/19/19 22:33 Interventions: ED Discharge Assessment Last Done: 01/19/19 22:32 Instructions: DI for Asthma -- Adult Activity Restrictions/Additional Instructions: *You have been diagnosed with [asthma exacerbation] *What to do: *Take medications as directed *Follow up with your primary care provider in 2-3 days, call for an appointment. Let them know you were seen in the Emergency Department and that we ask that you be seen in follow up *Return to ER if you should have any new, worsening or concerning symptoms Prescriptions: No Action albuterol sulfate [ProAir HFA] 90 mcg/actuation HFA aerosol inhaler 2 puff INHALATION Q4-6H PRN (Reason: asthma) Qty: 8 RF: 0 nitrofurantoin monohyd/m-cryst [Macrobid] 100 mg capsule 100 mg PO BID Qty: 14 RF: 0 MULTIVITAMIN Qty: 0 RF: 0 albuterol sulfate [Proventil HFA] 90 MCG/PUFF HFA aerosol inhaler 1 puff INH Qty: 0 RF: 0 budesonide-formoterol [Symbicort] 80 MCG/4.5 MCG HFA aerosol inhaler 1 inh INH BID Qty: 0 RF: 0 prednisone 50 mg tablet 50 mg PO DAILY Qty: 5 RF: 0 albuterol sulfate 90 mcg/actuation HFA aerosol inhaler 2 puff INHALATION Q6H PRN (Reason: shortness of breath or wheezing) Qty: 8 RF: 0 albuterol sulfate 90 mcg/actuation HFA aerosol inhaler 2 puff INHALATION Q6H PRN (Reason: bronchospasm) Qty: 8 RF: 0 prednisone 50 mg tablet 50 mg PO DAILY Qty: 5 RF: 0 Referrals: [facility] [Outside]
[2019-01-19] MEDS: ALBUTEROL/IPRATROPIUM 3 ML AMPUL INH (20:43)
[2019-01-19 20:44] VITALS: O2SAT 95
[2019-01-19] MEDS: methylPREDNISolone 125 MG/2 ML VIAL IV (20:55)
[2019-01-19 21:05] VITALS: BP 127/80; PULSE 77; RESP 18; O2SAT 93
[2019-01-19 21:19] LABS: Add Manual Diff / Slide Review NO; Basophils Absolute Auto 100 /uL (0-100); Basophils Percent Auto 1.1 % (0-2); Eosinophils Absolute Auto 600 /uL (0-450); Eosinophils Percent Auto 6.5 % (2-4); Hematocrit 48.5 % (36-46); Hemoglobin 16.2 g/dL (12.0-16.0); Lymphocytes Absolute Auto 4100 /uL (1100-4500); Lymphocytes Percent Auto 41.5 % (25-40); Mean Corpuscular HGB Conc 33.4 % (30-36); Mean Corpuscular Hemoglobin 30.1 PG (26-34); Mean Corpuscular Volume 90.2 fL (80-100); Monocytes Absolute Auto 700 /uL (0-900); Monocytes Percent Auto 7.3 % (3-14); Neutrophils Absolute Auto 4300 /uL (1500-7000); Neutrophils Percent Auto 43.6 % (50-75); Platelet Count 314 X10^3/uL (150-400); Red Blood Cell Count 5.38 X10^6/uL (4.0-5.2); Red Cell Distribution Width 13.4 % (11.6-14.8); White Blood Cell Count 9.9 X10^3/uL (4.5-11.0)
[2019-01-19 21:30] LABS: BUN Creatinine Ratio 13.8 (6-22); Blood Urea Nitrogen 11 mg/dL (7-17); Calcium 9.8 mg/dL (8.4-10.2); Carbon Dioxide 31 mmol/L (22-32); Chloride 101 mmol/L (98-107); Creatine Kinase 72 U/L (30-135); D Dimer < 200 ng/mL (<230); Estimated Glomerular Filt Rate > 60.0 mL/min (>60); Glucose 99 mg/dL (80-110); HEMOLYSIS < 15 (0-50); Magnesium 1.8 mg/dL (1.6-2.3); Potassium 3.9 mmol/L (3.4-5.1); Sodium 139 mmol/L (137-145)
[2019-01-19 21:31] LABS: Lactate (Lactic Acid) 1.4 mmol/L (0.7-2.1)
[2019-01-19 21:41] LABS: B Type Natriuretic Peptide < 100 (<100)
[2019-01-19 21:42] LABS: Troponin I < 0.012 ng/mL (0.01-0.034)
[2019-01-19 21:46] LABS: RBC Urine None Seen (0-5/HPF)
[2019-01-19 21:53] LABS: Bacteria Urine Few (2-10); Culture Indicated Urine Specimen Cultured; Squamous Epithelial Cell Urine 0-1 /HPF (0-5/HPF); WBC Urine 5-10/HPF (0-5/HPF)
[2019-01-19 21:53] LABS: Procalcitonin < 0.05 ng/mL (<0.5)
[2019-01-19 21:58] VITALS: BP 127/51; PULSE 78; RESP 18; O2SAT 93
--- NOTE | 2019-01-19 21:59 | ED_ITS ---
HPI - SOB/Dyspnea General Chief Complaint: Shortness of Breath/Dyspnea Stated Complaint: HURTS TO LAY DOWN Time Seen by Provider: 01/19/19 20:13 Source: patient and family Mode of arrival: ambulatory Limitations: no limitations History of Present Illness 78-year-old female with history of asthma presents with her and a chief complaint of wheezing and increased cough when laying flat for the past 6 months or more. She denies any significant change in her symptoms. She has had no cough with sputum production or fever or chills. She denies any chest pain. She is not dizzy nor weak or lightheaded. She denies abdominal pain. She denies any swelling of her legs. She denies any weight gain. Patient does use albuterol at home and has been using it without a spacer once daily. She has a prescription for oral prednisone but does not take it. MD Complaint: shortness of breath Onset (ago): month(s) Severity: mild Consistency/Duration: constant Relieving factors: nothing Exacerbating factors: lying flat Known history of: asthma Associated symptoms: denies other symptoms Treatment prior to arrival: bronchodilator Related Data Home oxygen amount: none Home Medications Medication Instructions Recorded Confirmed MULTIVITAMIN #0 01/23/17 12/18/18 albuterol sulfate [Proventil HFA] 1 puff INH #0 01/23/17 12/18/18 budesonide-formoterol [Symbicort] 1 inh INH BID #0 01/23/17 12/18/18 Previous Rx's Medication Instructions Recorded albuterol sulfate HFA 90 2 puff INHALATION Q4-6H PRN #8 gram 12/18/18 mcg/actuation aerosol inhaler nitrofurantoin 100 mg PO BID #14 cap 12/18/18 monohydrate/macrocrystals 100 mg capsule albuterol sulfate 2 puff INHALATION Q6H PRN #8 gram 12/29/18 albuterol sulfate 2 puff INHALATION Q6H PRN #8 gram 12/29/18 prednisone 50 mg PO DAILY #5 tab 12/29/18 prednisone 50 mg PO DAILY #5 tab 12/29/18 Allergies Allergy/AdvReac Type Severity Reaction Status Date / Time No Known Drug Allergies Allergy Unknown Verified 01/19/19 20:27 Review of Systems Constitutional Denies chills, Denies fever(s), Denies lethargy and Denies weakness Eyes Denies change in vision, Denies eye discharge, Denies irritation and Denies loss of vision ENT Ears, Nose, Mouth, and Throat: Denies change in voice, Denies neck pain and Denies sore throat Cardiovascular Denies chest pain, Denies irregular heart rhythm, Denies lightheadedness, Denies palpitations, Denies dyspnea, Denies dyspnea on exertion and Denies orthopnea Respiratory Denies cough, Denies dyspnea, Denies dyspnea on exertion and Reports wheezing Gastrointestinal Gastrointestinal: Denies abdominal pain, Denies change in bowel habits, Denies diarrhea, Denies nausea and Denies vomiting Genitourinary Denies hematuria, Denies flank pain, Denies urinary incontinence and Denies urinary urgency Musculoskeletal Denies neck pain Integumentary/Breasts Denies pruritus, Denies erythema, Denies rash and Denies wounds Neurologic Denies confusion, Denies loss of vision and Denies weakness Psychiatric Denies anxiety, Denies confusion, Denies depression, Denies homicidal ideation and Denies suicidal ideation Endocrine Denies palpitations Hematologic/Lymphatic Denies easy bruising Allergic/Immunologic Reports wheezing PFSH Medical History Asthma (Acute) Former smoker (Acute) Former smoker, stopped smoking in distant past (Acute) Social History Smoking Status: Former smoker Social History Smoking Status: Former smoker Exam Narrative Exam Narrative: GENERAL: 78-year-old female appears stated age, resting comfortably and in no obvious respiratory distress HEAD: Atraumatic. Normocephalic. No temporal or scalp tenderness. EYES: Pupils equal round and reactive. Extraocular motions intact. No scleral i cterus. No injection or drainage. ENT: Nose without bleeding, purulent drainage or septal hematoma. Throat without erythema, tonsillar hypertrophy or exudate. Uvula midline. Airway patent. NECK: Trachea midline. No JVD or lymphadenopathy. Supple, nontender, no meningeal signs. CARDIOVASCULAR: Regular rate and rhythm without murmurs, gallops, or rubs. RESPIRATORY: Decreased breath sounds bilaterally with a prolonged expiratory phase and a mild expiratory wheeze, no the by rales GASTROINTESTINAL: Abdomen soft, non-tender, nondistended. No hepato- splenomegaly, or palpable masses. No guarding. EXTREMITIES: No clubbing, cyanosis, or edema. No joint tenderness, effusion, or edema noted. BACK: Nontender without deformity or crepitance. No flank tenderness. NEURO: AOx3. SKIN: No rash or erythema. Initial Vital Signs Initial Vital Signs: Vital Signs Pulse Rate 75 01/19/19 20:27 Respiratory Rate 16 01/19/19 20:27 Blood Pressure 173/56 H 01/19/19 20:27 Pulse Oximetry 93 01/19/19 20:27 Course Orders Ordered: ED Orders 01/19/19 21:35 Urine Culture Stat Urine Microscopic Stat Discontinued Medications Albuterol (Ventolin Hfa Prepack) 1 box MISC SEEINSTR ONE Stop: 01/19/19 22:13 Last Admin: 01/19/19 22:20 Dose: 1 box Albuterol/Ipratropium (Duoneb) 3 ml INH NOW ONE Stop: 01/19/19 20:35 Last Admin: 01/19/19 20:43 Dose: 3 ml Methylprednisolone (Solu-Medrol 125 Mg Vial) 125 mg IV NOW ONE Stop: 01/19/19 20:23 Last Admin: 01/19/19 20:55 Dose: 125 mg Reevaluation(s) Reevaluation #1: Patient feels tremendous relief after DuoNeb. Respiratory therapy is provided bedside instruction for the use of a spacer Vital Signs - 8 hr 01/19/19 22:08 Pulse Rate 79 Respiratory Rate 21 Blood Pressure [Right Arm] 124/47 L Pulse Oximetry 97 MDM - SOB/Dyspnea Lab Data Result diagrams: 01/19/19 21:00 01/19/19 21:00 Lab Results 01/19/19 01/19/19 01/19/19 Range/Units 21:00 21:00 21:00 WBC 9.9 (4.5-11.0) X10^3/uL RBC 5.38 H (4.0-5.2) X10^6/uL Hgb 16.2 H (12.0-16.0) g/dL Hct 48.5 H (36-46) % MCV 90.2 (80-100) fL MCH 30.1 (26-34) PG MCHC 33.4 (30-36) % RDW 13.4 (11.6-14.8) % Plt Count 314 (150-400) X10^3/uL Neut % (Auto) 43.6 L (50-75) % Lymph % (Auto) 41.5 H (25-40) % [place] % (Auto) 7.3 (3-14) % Eos % (Auto) 6.5 H (2-4) % Baso % (Auto) 1.1 (0-2) % Neut # (Auto) 4300 (7904-0208) /uL Lymph # (Auto) 4100 (1179-5955) /uL [place] # (Auto) 700 (0-900) /uL Eos # (Auto) 600 H (0-450) /uL Baso # (Auto) 100 (0-100) /uL D-Dimer < 200 (<230) ng/mL Sodium 139 (137-145) mmol/L Potassium 3.9 (3.4-5.1) mmol/L Chloride 101 (98-107) mmol/L Carbon Dioxide 31 (22-32) mmol/L BUN 11 (7-17) mg/dL Creatinine 0.80 (0.52-1.04) mg/dL Estimated GFR > 60.0 (>60) mL/min BUN/Creatinine Ratio 13.8 (6-22) Glucose 99 (80-110) mg/dL Lactate (0.7-2.1) mmol/L Calcium 9.8 (8.4-10.2) mg/dL Magnesium 1.8 (1.6-2.3) mg/dL Total Creatine Kinase 72 (30-135) U/L CK-MB (CK-2) TNP CK-MB (CK-2) Rel Index TNP Troponin I < 0.012 (0.01-0.034) ng/mL B-Natriuretic Peptide < 100 (<100) Procalcitonin (<0.5) ng/mL Urine RBC (0-5/HPF) Urine WBC (0-5/HPF) Ur Squamous Epith Cells (0-5/HPF) Urine Bacteria (None) Ur Culture Indicated? 01/19/19 01/19/19 01/19/19 Range/Units 21:00 21:00 21:35 WBC (4.5-11.0) X10^3/uL RBC (4.0-5.2) X10^6/uL Hgb (12.0-16.0) g/dL Hct (36-46) % MCV (80-100) fL MCH (26-34) PG MCHC (30-36) % RDW (11.6-14.8) % Plt Count (150-400) X10^3/uL Neut % (Auto) (50-75) % Lymph % (Auto) (25-40) % [place] % (Auto) (3-14) % Eos % (Auto) (2-4) % Baso % (Auto) (0-2) % Neut # (Auto) (5204-0708) /uL Lymph # (Auto) (0442-3669) /uL [place] # (Auto) (0-900) /uL Eos # (Auto) (0-450) /uL Baso # (Auto) (0-100) /uL D-Dimer (<230) ng/mL Sodium (137-145) mmol/L Potassium (3.4-5.1) mmol/L Chloride (98-107) mmol/L Carbon Dioxide (22-32) mmol/L BUN (7-17) mg/dL Creatinine (0.52-1.04) mg/dL Estimated GFR (>60) mL/min BUN/Creatinine Ratio (6-22) Glucose (80-110) mg/dL Lactate 1.4 (0.7-2.1) mmol/L Calcium (8.4-10.2) mg/dL Magnesium (1.6-2.3) mg/dL Total Creatine Kinase (30-135) U/L CK-MB (CK-2) CK-MB (CK-2) Rel Index Troponin I (0.01-0.034) ng/mL B-Natriuretic Peptide (<100) Procalcitonin < 0.05 (<0.5) ng/mL Urine RBC None seen (0-5/HPF) Urine WBC 5-10/hpf H (0-5/HPF) Ur Squamous Epith Cells 0-1 /hpf (0-5/HPF) Urine Bacteria Few (2-10) H (None) Ur Culture Indicated? Specimen cultured Urine Dip Bedside Urine Glucose Negative Bedside Urine Bilirubin - Negative Bedside Urine Ketone - Negative Urine Specific [place] 1.005 Bedside Urine Occult Blood - Negative Bedside Urine pH 6 Bedside Urine Protein - Negative Bedside Urine Urobilinogen - Negative Bedside Urine Nitrite - Negative Bedside Urine Leukocytes ++ 125 Esterase Imaging Data Chest x-ray: Radiologist's impression: [address] [address] XRay Report Signed Patient: Deborah Wyatt MMR#: [id number] : 2Acct:[id number] Age/Sex: 78 / FDate of Service: 01/19/19 Loc: ED Accession Number: [id number] Procedure: XR chest 2V Ordering Provider: Trent Melendez D.O. PROCEDURE: XR CHEST 2V INDICATIONS: SOB TECHNIQUE: 2 views of the chest were acquired. COMPARISON: [facility], CR, XR CHEST 1V, 12/29/2018, 20:24. [facility], CR, CHEST 2 VIEW, 01/30/2017, 8:49. FINDINGS: Surgical changes and devices: None. Lungs and pleura: Lungs are clear. No pleural effusions or pneumothorax. Mediastinum: Mediastinal contours are normal. Heart size is normal. Bones and chest wall: No suspicious bony abnormalities. Soft tissues appear unremarkable. IMPRESSION: No acute cardiopulmonary disease. Dictated by: Sameera Coon M.D. on 01/19/2019 at 21:25 Approved by: Sameera Coon M.D. on 01/19/2019 at 21:26 MDM Narrative Medical decision making narrative: Patient's history initially sounded like CHF, a this was obviously considered but thought less likely given her lack of crackles on exam, weight gain, lower extremity edema, elevated BNP or characteristic findings on x-ray. Pneumonia considered but thought less likely given lack of fever, productive cough or findings on x-ray. Bronchospasm considered most likely given her improvement to bronchodilators Discharge Plan Departure Patient Disposition: Home Clinical Impression: Asthma with exacerbation Qualifiers: Asthma severity: mild Asthma persistence: intermittent Qualified Code(s): J45.21 - Mild intermittent asthma with (acute) exacerbation Discharge Date/Time: 01/19/19 22:33 Interventions: ED Discharge Assessment Last Done: 01/19/19 22:32 Instructions: DI for Asthma -- Adult Activity Restrictions/Additional Instructions: *You have been diagnosed with [asthma exacerbation] *What to do: *Take medications as directed *Follow up with your primary care provider in 2-3 days, call for an appointment. Let them know you were seen in the Emergency Department and that we ask that you be seen in follow up *Return to ER if you should have any new, worsening or concerning symptoms Prescriptions: No Action albuterol sulfate [ProAir HFA] 90 mcg/actuation HFA aerosol inhaler 2 puff INHALATION Q4-6H PRN (Reason: asthma) Qty: 8 RF: 0 nitrofurantoin monohyd/m-cryst [Macrobid] 100 mg capsule 100 mg PO BID Qty: 14 RF: 0 MULTIVITAMIN Qty: 0 RF: 0 albuterol sulfate [Proventil HFA] 90 MCG/PUFF HFA aerosol inhaler 1 puff INH Qty: 0 RF: 0 budesonide-formoterol [Symbicort] 80 MCG/4.5 MCG HFA aerosol inhaler 1 inh INH BID Qty: 0 RF: 0 prednisone 50 mg tablet 50 mg PO DAILY Qty: 5 RF: 0 albuterol sulfate 90 mcg/actuation HFA aerosol inhaler 2 puff INHALATION Q6H PRN (Reason: shortness of breath or wheezing) Qty: 8 RF: 0 albuterol sulfate 90 mcg/actuation HFA aerosol inhaler 2 puff INHALATION Q6H PRN (Reason: bronchospasm) Qty: 8 RF: 0 prednisone 50 mg tablet 50 mg PO DAILY Qty: 5 RF: 0 Referrals: [facility] [Outside]
[2019-01-19 22:08] VITALS: BP 124/47; PULSE 79; RESP 21; O2SAT 97
[2019-01-19] MEDS: ALBUTEROL HFA PREPACK 1 BOX MISC (22:20)
== END 2019-01-19 22:33 | disposition home or self-care (01) ==
PROVIDERS: Emergency Provider Emergency Medicine
DX: J45.21 Mild intermittent asthma with (acute) exacerbation (principal)
CPT/HCPCS: 36415; 36591; 71046; 80048; 81003; 81015; 82550; 83605; 83735; 83880; 84145; 84484; 85025; 85379; 87040; 87086; 93005; 94640; 96374; 99283; 99284; J2930

== ENCOUNTER 2019-01-30 21:52 | Emergency (ER) | payer MEDICARE, OTHER, SELFPAY ==
[2019-01-30 22:02] VITALS: BP 124/81; PULSE 77; RESP 18; TEMP 36.4; O2SAT 95; BMI 35.1
--- NOTE | 2019-01-30 22:09 | DI.RAD.S_ITS ---
PROCEDURE: XR CHEST 2V INDICATIONS: chest pain TECHNIQUE: 2 views of the chest were acquired. COMPARISON: [facility], , XR CHEST 2V, 01/19/2019, 20:24. [facility], , XR CHEST 1V, 12/29/2018, 20:24. [facility], , CHEST 2 VIEW, 01/30/2017, 8:49. [facility], , CHEST 2 VIEW, 02/20/2008, 10:33. [facility], CHEST 1 VIEW, 02/20/2008, 4:50. FINDINGS: Surgical changes and devices: None. Lungs and pleura: Lungs are clear. No pleural effusions or pneumothorax. The lungs are hyperexpanded, with flattening of the hemidiaphragms seen. Mediastinum: The cardiac contours are within normal limits. The aorta demonstrates calcification and tortuosity. Bones and chest wall: No suspicious bony abnormalities. Age-appropriate bony degenerative changes are seen. Soft tissues appear unremarkable. IMPRESSION: Hyperexpanded lungs, without an acute cardiopulmonary process identified. Dictated by: Kt Cohen M.D. on 01/31/2019 at 6:55 Approved by: Kt Cohen M.D. on 01/31/2019 at 6:55
--- NOTE | 2019-01-30 22:12 | ED.CHESTPAIN ---
HPI - Chest Pain General Chief Complaint: Chest Pain Stated Complaint: SOB Time Seen by Provider: 01/30/19 22:11 Source: patient Mode of arrival: ambulatory Limitations: no limitations History of Present Illness HPI narrative: The patient was at home at rest. She had multiple episodes of stabbing, brief chest pain or rest at home. The episodes were stabbing in nature, lasting less than 3 minutes. There is no associated dyspnea. There is no radiation of pain. she has dyspnea at rest at times. She is on inhalers, she is a former smoker. She has no history of cardiac disease. She has hypertension, no diabetes or hyperlipidemia. She has no chronic lung problems. She has not been ill. She has had no cough, fever or chills, orthopnea or edema. she has no hemoptysis. She has no history of DVT or PE. She does not exercise. She has chronic back pain. Her feels she has 2 months current richer/been to her back. She has no diagnosis of osteoarthritis. Related Data Home Medications Medication Instructions Recorded Confirmed MULTIVITAMIN #0 01/23/17 12/18/18 albuterol sulfate [Proventil HFA] 1 puff INH #0 01/23/17 12/18/18 budesonide-formoterol [Symbicort] 1 inh INH BID #0 01/23/17 12/18/18 Previous Rx's Medication Instructions Recorded albuterol sulfate HFA 90 2 puff INHALATION Q4-6H PRN #8 gram 12/18/18 mcg/actuation aerosol inhaler nitrofurantoin 100 mg PO BID #14 cap 12/18/18 monohydrate/macrocrystals 100 mg capsule albuterol sulfate 2 puff INHALATION Q6H PRN #8 gram 12/29/18 albuterol sulfate 2 puff INHALATION Q6H PRN #8 gram 12/29/18 prednisone 50 mg PO DAILY #5 tab 12/29/18 prednisone 50 mg PO DAILY #5 tab 12/29/18 Allergies Allergy/AdvReac Type Severity Reaction Status Date / Time No Known Drug Allergies Allergy Unknown Verified 01/30/19 22:06 Review of Systems Review of Systems ROS Unobtainable: All systems reviewed & are unremarkable except as noted in HPI and below Constitutional Denies chills, Denies fever(s) and Denies weakness ENT Ears, Nose, Mouth, and Throat: Denies vertigo, Denies dizziness, Denies neck pain and Denies sore throat Cardiovascular Denies syncope Comments: Chest pain as described in HPI. Respiratory Comments: Dyspnea on exertion. No dyspnea at rest. Gastrointestinal Gastrointestinal: Denies abdominal pain, Denies change in bowel habits, Denies nausea and Denies vomiting Musculoskeletal Reports as per HPI, Reports back pain and Denies neck pain Integumentary/Breasts Denies erythema and Denies rash Neurologic Denies confusion, Denies vertigo, Denies dizziness, Denies syncope and Denies weakness Psychiatric Denies anxiety and Denies confusion PFSH Medical History Hypertension (Acute) Asthma (Acute) Former smoker (Acute) Former smoker, stopped smoking in distant past (Acute) Social History Smoking Status: Former smoker Social History Smoking Status: Former smoker Exam Initial Vital Signs Initial Vital Signs: Vital Signs Temperature 97.6 F 01/30/19 22:02 Pulse Rate 77 01/30/19 22:02 Respiratory Rate 18 01/30/19 22:02 Blood Pressure 124/81 01/30/19 22:02 Pulse Oximetry 95 01/30/19 22:02 Const General: cooperative and well developed Nutritional Appearance: well nourished Orientation: alert, awake and oriented x3 HENMT Head: normocephalic and atraumatic Mouth: oral mucosae normal and moist mucous membranes Throat: tonsils normal Eyes Conjunctivae: conjunctivae normal Sclera: sclerae normal Neck Neck: No JVD Chest Chest: normal inspection of the chest Resp Effort & Inspection: normal respiratory effort, able to speak in complete sentences, no respiratory distress and no use of accessory muscles Auscultation: clear to auscultation bilaterally, no rales, no rhonchi and no wheezes Cardio Rate: regular rate Rhythm: regular rhythm Heart Sounds: S1 normal, S2 normal, no gallops, no murmurs and no rubs Pulses: radial pulses present and dorsalis pedis present GI Inspection: non-distended Palpation: soft, no hepatosplenomegaly, No guarding and No tender Auscultation: normal bowel sounds Back/Spine/Pelvis Back: No CVA tenderness Other: Moderate cervical and thoracic kyphosis. Skin General: no rashes or lesions noted and No petechiae Extrem General: no pedal edema and no calf tenderness Psych Appearance: well kempt Mental Status: mental status grossly normal Attitude: cooperative Course Course Narrative: The patient has been asymptomatic since arrival. EKG, chest x-ray and labs show no indication of acute cardiopulmonary disease. 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 I have advised her to follow up with her doctor suggesting evaluation for osteopenia. Orders Ordered: ED Orders 01/30/19 22:07 Complete Blood Count AUTO DIFF Stat Comprehensive Metabolic Panel Stat Troponin & CK Cardiac Panel Stat 01/30/19 22:09 XR chest 2V Stat EKG-12 Lead Stat Vital Signs - 8 hr 01/30/19 22:02 01/30/19 22:44 Temperature 97.6 F Pulse Rate 77 73 Respiratory Rate 18 19 Blood Pressure 124/81 Blood Pressure [Right Arm] 116/57 L Pulse Oximetry 95 94 MDM - Chest Pain Lab Data Result diagrams: 01/30/19 22:07 01/30/19 22:07 Lab Results 01/30/19 01/30/19 Range/Units 22:07 22:07 WBC 9.3 (4.5-11.0) X10^3/uL RBC 5.34 H (4.0-5.2) X10^6/uL Hgb 16.2 H (12.0-16.0) g/dL Hct 48.0 H (36-46) % MCV 89.9 (80-100) fL MCH 30.3 (26-34) PG MCHC 33.7 (30-36) % RDW 13.3 (11.6-14.8) % Plt Count 391 (150-400) X10^3/uL Neut % (Auto) 44.5 L (50-75) % Lymph % (Auto) 40.7 H (25-40) % [place] % (Auto) 8.4 (3-14) % Eos % (Auto) 5.3 H (2-4) % Baso % (Auto) 1.1 (0-2) % Neut # (Auto) 4100 (6273-6458) /uL Lymph # (Auto) 3800 (3508-7525) /uL [place] # (Auto) 800 (0-900) /uL Eos # (Auto) 500 H (0-450) /uL Baso # (Auto) 100 (0-100) /uL Sodium 140 (137-145) mmol/L Potassium 4.0 (3.4-5.1) mmol/L Chloride 103 (98-107) mmol/L Carbon Dioxide 30 (22-32) mmol/L BUN 12 (7-17) mg/dL Creatinine 0.60 (0.52-1.04) mg/dL Estimated GFR > 60.0 (>60) mL/min BUN/Creatinine Ratio 20.0 (6-22) Glucose 92 (80-110) mg/dL Calcium 9.9 (8.4-10.2) mg/dL Total Bilirubin 0.7 (0.2-1.3) mg/dL AST 29 (14-36) IU/L ALT 21 (9-52) IU/L Alkaline Phosphatase 92 (38-126) U/L Total Creatine Kinase 80 (30-135) U/L CK-MB (CK-2) TNP CK-MB (CK-2) Rel Index TNP Troponin I < 0.012 (0.01-0.034) ng/mL Total Protein 7.6 (6.3-8.2) g/dL Albumin 4.3 (3.5-5.0) g/dL Globulin 3.3 (1.7-4.1) g/dL Albumin/Globulin Ratio 1.3 (1.0-2.8) Imaging Data Chest x-ray: My impression: No acute cardiopulmonary process. Thoracic DJD. ECG Data Attestation: I personally reviewed and interpreted this ECG as follows: (Normal sinus rhythm rate 78 beats per minute. intermediate axis. Pattern consistent with pulmonary disease. Nonspecific ST T wave changes.) Discharge Plan Departure Patient Disposition: Home Clinical Impression: Atypical chest pain Instructions: DI for Atypical Chest Pain Activity Restrictions/Additional Instructions: The pain does not appear to be related to her heart or lungs. I would advise Tylenol for the pain he experienced today. If you have sustained pain as we discussed, return to the ER. Follow-up with your doctor regarding ongoing pain, or difficulty breathing. Heart recommend follow up with her doctor for evaluation for arthritis and/or bone density studies. Prescriptions: No Action albuterol sulfate [ProAir HFA] 90 mcg/actuation HFA aerosol inhaler 2 puff INHALATION Q4-6H PRN (Reason: asthma) Qty: 8 RF: 0 nitrofurantoin monohyd/m-cryst [Macrobid] 100 mg capsule 100 mg PO BID Qty: 14 RF: 0 MULTIVITAMIN Qty: 0 RF: 0 albuterol sulfate [Proventil HFA] 90 MCG/PUFF HFA aerosol inhaler 1 puff INH Qty: 0 RF: 0 budesonide-formoterol [Symbicort] 80 MCG/4.5 MCG HFA aerosol inhaler 1 inh INH BID Qty: 0 RF: 0 prednisone 50 mg tablet 50 mg PO DAILY Qty: 5 RF: 0 albuterol sulfate 90 mcg/actuation HFA aerosol inhaler 2 puff INHALATION Q6H PRN (Reason: shortness of breath or wheezing) Qty: 8 RF: 0 albuterol sulfate 90 mcg/actuation HFA aerosol inhaler 2 puff INHALATION Q6H PRN (Reason: bronchospasm) Qty: 8 RF: 0 prednisone 50 mg tablet 50 mg PO DAILY Qty: 5 RF: 0
[2019-01-30 22:16] LABS: Add Manual Diff / Slide Review NO; Basophils Absolute Auto 100 /uL (0-100); Basophils Percent Auto 1.1 % (0-2); Eosinophils Absolute Auto 500 /uL (0-450); Eosinophils Percent Auto 5.3 % (2-4); Hemoglobin 16.2 g/dL (12.0-16.0); Lymphocytes Absolute Auto 3800 /uL (1100-4500); Lymphocytes Percent Auto 40.7 % (25-40); Mean Corpuscular HGB Conc 33.7 % (30-36); Mean Corpuscular Hemoglobin 30.3 PG (26-34); Mean Corpuscular Volume 89.9 fL (80-100); Monocytes Absolute Auto 800 /uL (0-900); Monocytes Percent Auto 8.4 % (3-14); Neutrophils Absolute Auto 4100 /uL (1500-7000); Neutrophils Percent Auto 44.5 % (50-75); Platelet Count 391 X10^3/uL (150-400); Red Blood Cell Count 5.34 X10^6/uL (4.0-5.2); Red Cell Distribution Width 13.3 % (11.6-14.8); White Blood Cell Count 9.3 X10^3/uL (4.5-11.0)
[2019-01-30 22:29] LABS: Alanine Aminotransferase 21 IU/L (9-52); Albumin 4.3 g/dL (3.5-5.0); Albumin Globulin Ratio 1.3 (1.0-2.8); Alkaline Phosphatase 92 U/L (38-126); Aspartate Aminotransferase 29 IU/L (14-36); Bilirubin Total 0.7 mg/dL (0.2-1.3); Blood Urea Nitrogen 12 mg/dL (7-17); Calcium 9.9 mg/dL (8.4-10.2); Carbon Dioxide 30 mmol/L (22-32); Chloride 103 mmol/L (98-107); Creatine Kinase 80 U/L (30-135); Estimated Glomerular Filt Rate > 60.0 mL/min (>60); Globulin 3.3 g/dL (1.7-4.1); Glucose 92 mg/dL (80-110); HEMOLYSIS 23 (0-50); Sodium 140 mmol/L (137-145); Total Protein 7.6 g/dL (6.3-8.2)
[2019-01-30 22:41] LABS: Troponin I < 0.012 ng/mL (0.01-0.034)
[2019-01-30 22:44] VITALS: BP 116/57; PULSE 73; RESP 19; O2SAT 94
[2019-01-31 00:33] VITALS: BP 114/51; PULSE 64; RESP 18; O2SAT 94
== END 2019-01-31 00:33 | disposition home or self-care (01) ==
PROVIDERS: Emergency Provider Emergency Medicine
DX: R07.89 Other chest pain (principal)
CPT/HCPCS: 36591; 71046; 80053; 82550; 84484; 85025; 93005; 93010; 99282; 99285

== ENCOUNTER 2019-02-11 23:38 | Emergency (ER) | payer MEDICARE, OTHER, SELFPAY ==
--- NOTE | 2019-02-11 23:57 | DI.RAD.S_ITS ---
PROCEDURE: XR CHEST 1V INDICATIONS: short of breath TECHNIQUE: One view of the chest was acquired. COMPARISON: [facility], CR, XR CHEST 2V, 01/30/2019, 22:24; 01/19/2019, 12/29/2018, 01/30/2017. FINDINGS: Surgical changes and devices: None. Lungs and pleura: No consolidation. Increased interstitial markings. Lung volumes are increased.. No pleural effusions or pneumothorax. Mediastinum: Mediastinal contours appear normal. Heart size is normal. Bones and chest wall: No suspicious bony lesions. Overlying soft tissues appear unremarkable. IMPRESSION: No acute cardiopulmonary abnormality. Emphysematous change. Dictated by: Ousmane Newsome M.D. on 02/12/2019 at 7:20 Approved by: Ousmane Newsome M.D. on 02/12/2019 at 7:22
--- NOTE | 2019-02-12 00:01 | ED_ITS ---
HPI - SOB/Dyspnea General Chief Complaint: Shortness of Breath/Dyspnea Stated Complaint: can't breath all the way Time Seen by Provider: 02/11/19 23:52 Source: patient and old records reviewed Mode of arrival: ambulatory Limitations: no limitations History of Present Illness HPI Narrative: Patient is 78-year-old female with history of asthma presenting with sudden onset shortness of breath. She has been here a couple times with asthma exacerbation. She used her albuterol inhaler at home without any relief. Has not says she was well this morning and this came on suddenly this evening. No fevers no productive cough. Currently satting 85-86% on room air. She is unable to speak. answering most questions. No fevers or chills. MD Complaint: shortness of breath Related Data Home Medications Medication Instructions Recorded Confirmed MULTIVITAMIN #0 01/23/17 12/18/18 albuterol sulfate [Proventil HFA] 1 puff INH #0 01/23/17 12/18/18 budesonide-formoterol [Symbicort] 1 inh INH BID #0 01/23/17 12/18/18 Previous Rx's Medication Instructions Recorded albuterol sulfate 90 mcg/actuation 2 puff INHALATION Q4-6H PRN #8 gram 12/18/18 aerosol inhaler nitrofurantoin 100 mg PO BID #14 cap 12/18/18 monohydrate/macrocrystals 100 mg capsule albuterol sulfate 2 puff INHALATION Q6H PRN #8 gram 12/29/18 albuterol sulfate 2 puff INHALATION Q6H PRN #8 gram 12/29/18 prednisone 50 mg PO DAILY #5 tab 12/29/18 prednisone 50 mg PO DAILY #5 tab 12/29/18 prednisone 10 mg PO DAILY #30 tab 02/12/19 Allergies Allergy/AdvReac Type Severity Reaction Status Date / Time No Known Drug Allergies Allergy Unknown Verified 01/30/19 22:06 Review of Systems Review of Systems ROS Unobtainable: All systems reviewed & are unremarkable except as noted in HPI and below Constitutional Constitutional: Denies chills, Denies fever(s), Denies lethargy and Denies weakness Cardiovascular Cardiovascular: Denies chest pain, Denies irregular heart rhythm, Denies lightheadedness, Denies palpitations and Denies orthopnea Respiratory Respiratory: Reports as per HPI Gastrointestinal Gastrointestinal: Denies abdominal pain, Denies change in bowel habits, Denies diarrhea, Denies nausea and Denies vomiting Genitourinary Genitourinary: Denies hematuria, Denies flank pain, Denies urinary incontinence and Denies urinary urgency Musculoskeletal Musculoskeletal: Denies back pain, Denies muscle weakness, Denies numbness and Denies tingling Integumentary/Breasts Skin/Breast: Denies pruritus, Denies erythema, Denies rash and Denies wounds Neurologic Neurologic: Denies numbness, Denies tingling and Denies weakness Endocrine Endocrine: Denies palpitations [facility] Medical History Asthma (Acute) Former smoker (Acute) Former smoker, stopped smoking in distant past (Acute) Hypertension (Acute) Social History Smoking Status: Former smoker Social History Smoking Status: Former smoker Exam Initial Vital Signs Initial Vital Signs: Vital Signs Pulse Rate 91 H 02/12/19 00:17 Respiratory Rate 26 H 02/12/19 00:17 Pulse Oximetry 92 02/12/19 00:17 GENERAL: Alert elderly female HEENT: Head atraumatic,EOMI, pupils reactive, face symmetric, moist mucous membranes CARDIOVASCULAR: Regular rate and rhythm without murmurs, rubs or gallops. RESPIRATORY: Significant decreased air movement unable to speak in full sentences faint wheezing noted throughout ABDOMEN: Soft, nontender. Normoactive bowel sounds all 4 quadrants. No guarding or rebound. : No CVA tenderness EXTREMITIES: Normal range of motion, no clubbing or edema. Neurovascularly intact NEUROLOGICAL: Alert and oriented x4.Normal gait and speech. SKIN: Warm, dry, no laceration, no petechiae, no rashes or lesions. Course Orders Ordered: ED Orders 02/11/19 23:56 Consult to Respiratory Therapy Evaluate & Treat EKG-12 Lead Stat 02/11/19 23:57 XR chest 1V Stat 02/11/19 23:59 B Type Natriuretic Peptide Stat Basic Metabolic Panel Stat Complete Blood Count AUTO DIFF Stat Lactate (Lactic Acid) Stat Magnesium Stat Partial Thromboplastin Time Stat Procalcitonin Stat Prothrombin Time INR Stat Troponin & CK Cardiac Panel Stat 02/12/19 00:35 EKG-12 Lead Stat Discontinued Medications Albuterol (Ventolin) 2.5 mg INH NOW ONE Stop: 02/11/19 23:57 Last Admin: 02/12/19 00:12 Dose: 2.5 mg Documented by: JOSEPH Albuterol (Ventolin Hfa Prepack) 1 box MISC SEEINSTR ONE Stop: 02/12/19 01:24 Last Admin: 02/12/19 01:33 Dose: 1 box Documented by: SHYANNE Albuterol/Ipratropium (Duoneb) 3 ml INH NOW ONE Stop: 02/11/19 23:57 Last Admin: 02/12/19 00:13 Dose: 3 ml Documented by: JOSEPH Methylprednisolone (Solu-Medrol 125 Mg Vial) 125 mg IV NOW ONE Stop: 02/11/19 23:57 Last Admin: 02/12/19 00:17 Dose: 125 mg Documented by: JUAN Vital Signs Vital signs: Vital Signs - 8 hr 02/12/19 00:17 02/12/19 00:49 02/12/19 01:31 Pulse Rate 91 H 95 H 98 H Respiratory Rate 26 H 20 28 H Blood Pressure [Right Arm] 116/48 L 115/61 Pulse Oximetry 92 94 93 MDM - SOB/Dyspnea Lab Data Attestation: I reviewed the patient's lab results. Result diagrams: 02/11/19 23:59 02/11/19 23:59 Labs: Lab Results 02/11/19 02/11/19 02/11/19 Range/Units 23:59 23:59 23:59 WBC 8.9 (4.5-11.0) X10^3/uL RBC 5.39 H (4.0-5.2) X10^6/uL Hgb 16.3 H (12.0-16.0) g/dL Hct 48.5 H (36-46) % MCV 90.0 (80-100) fL MCH 30.2 (26-34) PG MCHC 33.6 (30-36) % RDW 13.7 (11.6-14.8) % Plt Count 354 (150-400) X10^3/uL Neut % (Auto) 44.3 L (50-75) % Lymph % (Auto) 39.6 (25-40) % [place] % (Auto) 8.8 (3-14) % Eos % (Auto) 6.6 H (2-4) % Baso % (Auto) 0.7 (0-2) % Neut # (Auto) 4000 (3136-9297) /uL Lymph # (Auto) 3500 (7736-4073) /uL [place] # (Auto) 800 (0-900) /uL Eos # (Auto) 600 H (0-450) /uL Baso # (Auto) 100 (0-100) /uL PT 11.1 (10.1-12.7) SECONDS INR 1.0 (0.9-1.3) APTT 36 (26.4-36.2) SECONDS Sodium 140 (137-145) mmol/L Potassium 3.6 (3.4-5.1) mmol/L Chloride 102 (98-107) mmol/L Carbon Dioxide 27 (22-32) mmol/L BUN 12 (7-17) mg/dL Creatinine 0.70 (0.52-1.04) mg/dL Estimated GFR > 60.0 (>60) mL/min BUN/Creatinine Ratio 17.1 (6-22) Glucose 107 (80-110) mg/dL Lactate (0.7-2.1) mmol/L Calcium 10.0 (8.4-10.2) mg/dL Magnesium 1.7 (1.6-2.3) mg/dL Total Creatine Kinase 88 (30-135) U/L CK-MB (CK-2) TNP CK-MB (CK-2) Rel Index TNP Troponin I < 0.012 (0.01-0.034) ng/mL B-Natriuretic Peptide < 100 (<100) Procalcitonin (<0.5) ng/mL 02/11/19 02/11/19 Range/Units 23:59 23:59 WBC (4.5-11.0) X10^3/uL RBC (4.0-5.2) X10^6/uL Hgb (12.0-16.0) g/dL Hct (36-46) % MCV (80-100) fL MCH (26-34) PG MCHC (30-36) % RDW (11.6-14.8) % Plt Count (150-400) X10^3/uL Neut % (Auto) (50-75) % Lymph % (Auto) (25-40) % [place] % (Auto) (3-14) % Eos % (Auto) (2-4) % Baso % (Auto) (0-2) % Neut # (Auto) (8308-9742) /uL Lymph # (Auto) (6218-0409) /uL [place] # (Auto) (0-900) /uL Eos # (Auto) (0-450) /uL Baso # (Auto) (0-100) /uL PT (10.1-12.7) SECONDS INR (0.9-1.3) APTT (26.4-36.2) SECONDS Sodium (137-145) mmol/L Potassium (3.4-5.1) mmol/L Chloride (98-107) mmol/L Carbon Dioxide (22-32) mmol/L BUN (7-17) mg/dL Creatinine (0.52-1.04) mg/dL Estimated GFR (>60) mL/min BUN/Creatinine Ratio (6-22) Glucose (80-110) mg/dL Lactate 1.8 (0.7-2.1) mmol/L Calcium (8.4-10.2) mg/dL Magnesium (1.6-2.3) mg/dL Total Creatine Kinase (30-135) U/L CK-MB (CK-2) CK-MB (CK-2) Rel Index Troponin I (0.01-0.034) ng/mL B-Natriuretic Peptide (<100) Procalcitonin < 0.05 (<0.5) ng/mL Imaging Data Chest x-ray: Attestation: I personally reviewed and interpreted this imaging study as follows: My impression: No acute cardiopulmonary process ECG Data Attestation: I personally reviewed and interpreted this ECG as follows: Prior ECG tracings: available for review Interpretation: Normal sinus rhythm rate [address] changes no T-wave inversions similar to previous she has MDM Narrative Medical decision making narrative: Patient received multiple albuterol she is off oxygen she is speaking in full sentences she has no complaints now. No overall is feeling significantly. She has not been on prednisone since to the eye. I will put her on a long taper prednisone to see if that helps she is requesting another albuterol inhaler which is not problem. They are from [place] the states that they come appearance summertime however he is thinking she will likely go back to [place] soon due to her difficulty in breathing Discharge Plan Departure Patient Disposition: Home Clinical Impression: Asthma with exacerbation Qualifiers: Asthma severity: moderate Asthma persistence: persistent Qualified Code(s): J45.41 - Moderate persistent asthma with (acute) exacerbation Discharge Date/Time: 02/12/19 01:43 Instructions: DI for Asthma -- Adult Activity Restrictions/Additional Instructions: *You have been diagnosed with asthma exacerbation *What to do: *Continue to take medications as directed Albuterol 1-2 puffs every 4-6 hours if needed for shortness of breath use the spacer Prednisone 40 mg x3 days, 30 mg x3 days, 20 mg x3 days, 10 mg x3 days *Follow up with your primary care provider in 2-3 days *Return to ER if you should have increasing shortness of breath, chest pain [or] any new, worsening or concerning symptoms Prescriptions: New prednisone 10 mg tablet 10 mg PO DAILY Qty: 30 RF: 0 No Action albuterol sulfate [ProAir HFA] 90 mcg/actuation HFA aerosol inhaler 2 puff INHALATION Q4-6H PRN (Reason: asthma) Qty: 8 RF: 0 nitrofurantoin monohyd/m-cryst [Macrobid] 100 mg capsule 100 mg PO BID Qty: 14 RF: 0 MULTIVITAMIN Qty: 0 RF: 0 albuterol sulfate [Proventil HFA] 90 MCG/PUFF HFA aerosol inhaler 1 puff INH Qty: 0 RF: 0 budesonide-formoterol [Symbicort] 80 MCG/4.5 MCG HFA aerosol inhaler 1 inh INH BID Qty: 0 RF: 0 prednisone 50 mg tablet 50 mg PO DAILY Qty: 5 RF: 0 albuterol sulfate 90 mcg/actuation HFA aerosol inhaler 2 puff INHALATION Q6H PRN (Reason: shortness of breath or wheezing) Qty: 8 RF: 0 albuterol sulfate 90 mcg/actuation HFA aerosol inhaler 2 puff INHALATION Q6H PRN (Reason: bronchospasm) Qty: 8 RF: 0 prednisone 50 mg tablet 50 mg PO DAILY Qty: 5 RF: 0 Referrals: [facility] [Outside]
[2019-02-12] MEDS: ALBUTEROL 2.5 MG/3 ML NEB (ADULT) INH (00:12)
[2019-02-12] MEDS: ALBUTEROL/IPRATROPIUM 3 ML AMPUL INH (00:13)
[2019-02-12 00:17] VITALS: PULSE 91; RESP 26; O2SAT 92
[2019-02-12] MEDS: methylPREDNISolone 125 MG/2 ML VIAL IV (00:17)
--- NOTE | 2019-02-12 00:24 | RT ---
02/12/2019 0023 4 nebulizers given via aerosol mask per patient request, back to back. BS increased dramatically toward the end of the fourth treatment. Initially, diminished with tight wheeze on E-phase in [place] changing to increased throughout and approaching normal aeration with faint remaining expiratory wheeze on E-phase in the [place], especailly the throat. Patient seems more comfortable at present and oxygenation increased from 92% on 2.5LPM before treatment to 97% on same setting post treatment. [place], [employer]
[2019-02-12 00:29] LABS: Add Manual Diff / Slide Review NO; Basophils Absolute Auto 100 /uL (0-100); Basophils Percent Auto 0.7 % (0-2); Eosinophils Absolute Auto 600 /uL (0-450); Eosinophils Percent Auto 6.6 % (2-4); Hematocrit 48.5 % (36-46); Hemoglobin 16.3 g/dL (12.0-16.0); Lymphocytes Absolute Auto 3500 /uL (1100-4500); Lymphocytes Percent Auto 39.6 % (25-40); Mean Corpuscular HGB Conc 33.6 % (30-36); Mean Corpuscular Hemoglobin 30.2 PG (26-34); Monocytes Absolute Auto 800 /uL (0-900); Monocytes Percent Auto 8.8 % (3-14); Neutrophils Absolute Auto 4000 /uL (1500-7000); Neutrophils Percent Auto 44.3 % (50-75); Platelet Count 354 X10^3/uL (150-400); Red Blood Cell Count 5.39 X10^6/uL (4.0-5.2); Red Cell Distribution Width 13.7 % (11.6-14.8); White Blood Cell Count 8.9 X10^3/uL (4.5-11.0)
[2019-02-12 00:31] LABS: Prothrombin Time 11.1 SECONDS (10.1-12.7)
[2019-02-12 00:33] LABS: PTT Partial Thromboplastin Tim 36 SECONDS (26.4-36.2)
[2019-02-12 00:34] LABS: Lactate (Lactic Acid) 1.8 mmol/L (0.7-2.1)
[2019-02-12 00:35] LABS: BUN Creatinine Ratio 17.1 (6-22); Blood Urea Nitrogen 12 mg/dL (7-17); Carbon Dioxide 27 mmol/L (22-32); Chloride 102 mmol/L (98-107); Creatine Kinase 88 U/L (30-135); Estimated Glomerular Filt Rate > 60.0 mL/min (>60); Glucose 107 mg/dL (80-110); HEMOLYSIS < 15 (0-50); Magnesium 1.7 mg/dL (1.6-2.3); Potassium 3.6 mmol/L (3.4-5.1); Sodium 140 mmol/L (137-145)
[2019-02-12 00:47] LABS: Troponin I < 0.012 ng/mL (0.01-0.034)
[2019-02-12 00:49] VITALS: BP 116/48; PULSE 94; PULSE 95; RESP 17; RESP 20; O2SAT 100; O2SAT 94
[2019-02-12 00:52] LABS: B Type Natriuretic Peptide < 100 (<100)
[2019-02-12 01:16] LABS: Procalcitonin < 0.05 ng/mL (<0.5)
[2019-02-12 01:31] VITALS: BP 115/61; PULSE 98; RESP 28; O2SAT 93
[2019-02-12] MEDS: ALBUTEROL HFA PREPACK 1 BOX MISC (01:33)
== END 2019-02-12 01:43 | disposition home or self-care (01) ==
PROVIDERS: Emergency Provider Emergency Medicine
DX: J45.41 Moderate persistent asthma with (acute) exacerbation (principal)
CPT/HCPCS: 36591; 71045; 80048; 82550; 83605; 83735; 83880; 84145; 84484; 85025; 85610; 85730; 93005; 94640; 99283; 99285; J2930; J7613